=== PATIENT | female | born 1935 | race Caucasian/White ===

== ENCOUNTER 2017-09-13 16:47 | Inpatient (IN) | payer OTHER ==
[2017-09-13 16:59] VITALS: BMI 26.5
--- NOTE | 2017-09-13 17:00 | PDOC ---
Rapid Medical Evaluation Chief Complaint: Shortness of Breath Time Seen by Provider: 09/13/17 16:55 Medical Evaluation: Allergies Allergy/AdvReac Type Severity Reaction Status Date / Time No Known Allergies Allergy Verified 09/13/17 16:53 09/13/17 16:55 The patient presents with a chief complaint of: [Shortness of breathe, son reports blood in the urine. Cough, Fever, weakness and vomiting since Wednesday. Body aches. Unable to keep any fluids or solids in. ] I have performed a brief in-person evaluation of this patient. Pertinent physical exam findings: 99.9 HR 124., tachycardia, lungs clear I have ordered the following: [Influenza, CBC, CMP, Blood cultures, lactic acid, urinalysis, urine culture, chest xray] The patient will proceed to the ED for further evaluation. Discharge Disposition - Diagnosis Shortness of breath - Referrals Referrals: Thomas Prescott MD [Primary Care Provider] - - Patient Instructions - Post Discharge Activity
--- NOTE | 2017-09-13 17:36 | PDOC ---
History of Present Illness - General Chief Complaint: SIRS, Suspected/Possible Stated Complaint: COLD SYMPTOMS Time Seen by Provider: 09/13/17 16:55 History Source: Patient - History of Present Illness Initial Comments: 09/13/17 17:32 This 81-year-old woman with past medical history of hypertension, hyperlipidemia , hypothyroidism who presents to the emergency department for chills, headache, body aches, nausea, vomiting, hematuria for the past 4-5 days. She states she was seen by a primary medical doctor who gave her an antibiotic which has not helped. She states she's having difficulty tolerating solid foods. She reports being able to tolerate liquids without difficulty. Patient denies chest pain, diarrhea. PMD: Ribiero PMH: Hypertension, hyperlipidemia, hypothyroidism next PSH: Denies NKDA Tobacco: Denies EtOH: Denies Illicits: Denies Patient has not traveled outside the [place] within the past 30 days. Patient makes frequent trips to [facility] with her last trip being February 2017. Past History - Past Medical History Allergies/Adverse Reactions: Allergies Allergy/AdvReac Type Severity Reaction Status Date / Time No Known Allergies Allergy Verified 09/13/17 16:53 Home Medications: Ambulatory Orders Atorvastatin Ca [Lipitor] 10 mg PO HS 09/13/17 Hydrocodone/Acetaminophen [Hydrocodone-Acetamin 5-325 mg] 1 each PO QID PRN Levothyroxine Sodium [Levoxyl] 50 mcg PO DAILY 09/13/17 Lisinopril [Prinivil] 20 mg PO BID 09/13/17 COPD: No Hypercholesterolemia: Yes Thyroid Disease: Yes - Suicide/Smoking/Psychosocial Hx Smoking History: Never smoked Have you smoked in the past 12 months: No Information on smoking cessation initiated: No Hx Alcohol Use: No Drug/Substance Use Hx: No Substance Use Type: None Review of Systems - Review of Systems Able to Perform ROS?: Yes Is the patient limited Danish proficient: Yes Constitutional: Yes: See HPI HEENTM: Yes: See HPI Respiratory: Yes: See HPI Cardiac (ROS): No: Symptoms Reported ABD/GI: Yes: See HPI : Yes: See HPI Musculoskeletal: Yes: See HPI Integumentary: No: Symptoms Reported Neurological: No: Symptoms reported Endocrine: No: Symptoms Reported *Physical Exam - Vital Signs Last Vital Signs Temp Pulse Resp BP Pulse Ox 99.9 F H 121 H 20 123/80 100 09/13/17 16:54 09/13/17 16:54 09/13/17 16:54 09/13/17 16:54 09/13/17 16:54 - Physical Exam General Appearance: Yes: Appropriately Dressed. No: Apparent Distress HEENT: positive: Normal ENT Inspection Neck: positive: Trachea midline, Supple Respiratory/Chest: positive: Lungs Clear, Normal Breath Sounds. negative: Chest Tender, Respiratory Distress, Accessory Muscle Use Cardiovascular: positive: Regular Rhythm, Regular Rate, S1, S2. negative: Edema , JVD, Murmur Gastrointestinal/Abdominal: positive: Normal Bowel Sounds, Soft. 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 NML intact, Fully Oriented, Alert, Normal Mood/ Affect, Normal Response, Motor Strength 5/5 Heart Score/ECG Review - History History: Slightly suspicious - Electrocardiogram EKG: Normal - Age Age: >/= 65 - Risk Factors Risk Factors Heart Score: Yes Hx Hypercholesterolemia, Yes Hx Hypertension Based on the list above the patient has:: 1-2 risk factors - Troponin Troponin: </= normal limit - Score Heart Score - Total: 3 - ECG Intrepretation Rhythm: Regular Rhythm - ST and T Non Specific ST-T Wave changes: No ED Treatment Course - LABORATORY CBC & Chemistry Diagram: 09/15/17 06:35 09/15/17 06:35 - RADIOLOGY Radiology Studies Ordered: Category Date Time Status CXRPORT [CHEST X-RAY PORTABLE*] [RAD] Stat Radiology 09/13/17 17:16 Ordered Medical Decision Making - Medical Decision Making 09/13/17 17:36 A/P: 81-year-old woman past medical history of hypertension, hyperlipidemia, hypothyroidism with chills, headaches, body aches, hematuria, nausea and vomiting. Vital signs notable for heart rate of 121 and temperature of 99.9. Labs with lactate, blood cultures, UA, urine culture, influenza swab, chest x- ray. Tylenol 975mg orally now. Reassess after all testing is been completed 09/13/17 19:23 Laboratory testing consistent with pyelonephritis. A care with creatinine 1.3 up from a baseline of 1.0. Patient given 500 mL of fluid. I'll treat the patient with one dose of IV Levaquin here and give her by mouth medication to treat as an outpatient. I discussed the physical exam findings, ancillary test results and final diagnoses with the patient. I answered all of the patient's questions. The patient was satisfied with the care received and felt comfortable with the discharge plan and treatment plan. The patient will call Dr. Prescott within 96 hours to arrange follow-up and will return to the Emergency Department with any new, persistent or worsening symptoms. *DC/Admit/Observation/Transfer Diagnosis at time of Disposition: Pyelonephritis - Discharge Dispostion Condition at time of disposition: Stable - Referrals - Patient Instructions - Post Discharge Activity
[2017-09-13 17:58] LABS: INR 1.18 (0.82-1.09); PROTHROMBIN TIME (PATIENT) 13.3 SEC (9.98-11.88)
[2017-09-13 18:21] LABS: ALBUMIN 3.4 g/dl (3.4-5.0); ANION GAP 10 (8-16); BLOOD UREA NITROGEN 26 mg/dL (7-18); CALCIUM 8.4 mg/dL (8.5-10.1); CHLORIDE 101 mmol/L (98-107); CO2 23 mmol/L (21-32); CREATININE 1.3 mg/dL (0.55-1.02); GLUCOSE,RANDOM 127 mg/dL (74-106); SGPT/ALT 22 U/L (12-78); SODIUM 134 mmol/L (136-145)
[2017-09-13 18:25] LABS: ALK PHOS 136 U/L (45-117); BILIRUBIN,TOTAL 1.1 mg/dL (0.2-1.0); TOT PROT 7.2 g/dl (6.4-8.2)
[2017-09-13 18:30] LABS: POTASSIUM 4.2 mmol/L (3.5-5.1); SGOT/AST 30 U/L (15-37)
[2017-09-13] MEDS ORDERED: SODIUM CHLORIDE 500 ML IV STA (18:31)
[2017-09-13] MEDS ORDERED: ACETAMINOPHEN 1000 MG/100 ML VIAL (NON FORMULARY) IVPB ONE (18:35)
[2017-09-13 18:47] LABS: BASO % 0.3 % (0-2.0); HEMATOCRIT 37.5 % (32.4-45.2); HEMOGLOBIN 12.4 GM/dL (10.7-15.3); LYMPH % 3.3 % (8-40); MCH 28.9 pg (25.7-33.7); MCHC 32.9 g/dl (32.0-36.0); MEAN CELL VOLUME 87.8 fl (80-96); MEAN PLT VOLUME 9.6 fl (7.5-11.1); MONO % 8.5 % (3.8-10.2); NEUT % 87.9 % (42.8-82.8); PLATELET COUNT 197 K/MM3 (134-434); RBC 4.27 M/mm3 (3.60-5.2); RDW 13.7 % (11.6-15.6); URINE APPEARANCE TURBID; URINE BILIRUBIN NEGATIVE (NEGATIVE); URINE BLOOD 2+ (NEGATIVE); URINE COLOR AMBER; URINE GLUCOSE (UA) NEGATIVE (NEGATIVE); URINE KETONE TRACE (NEGATIVE); URINE NITRITE POSITIVE (NEGATIVE); URINE UROBILINOGEN NEGATIVE mg/dL (0.2-1.0); WHITE BLOOD COUNT 16.2 K/mm3 (4.0-10.0)
[2017-09-13 18:48] LABS: URINE LEUK ESTERASE 3+ (NEGATIVE); URINE PROTEIN 2+ (NEGATIVE)
[2017-09-13 18:58] LABS: EPI CELLS FEW /HPF (FEW); URINE BACTERIA RARE /hpf (NONE SEEN); URINE MUCUS FEW
[2017-09-13] MEDS ORDERED: METOCLOPRAMIDE HCL INJECTION 10 MG/2 ML VIAL IVPB ONE (20:11)
[2017-09-13] MEDS ORDERED: METOCLOPRAMIDE HCL INJECTION 10 MG/2 ML VIAL ONE (20:13)
[2017-09-13] MEDS ORDERED: ACETAMINOPHEN 325 MG TABLET (FP) PO ONE (20:53)
--- NOTE | 2017-09-13 20:53 | PDOC ---
*Physical Exam - Vital Signs Last Vital Signs Temp Pulse Resp BP Pulse Ox 100.4 F H 80 18 117/71 97 09/13/17 18:50 09/13/17 19:22 09/13/17 19:22 09/13/17 19:22 09/13/17 19:22 - Physical Exam General Appearance: Yes: Mild Distress Gastrointestinal/Abdominal: positive: Normal Bowel Sounds, Tender, Soft Musculoskeletal: positive: CVA Tenderness Neurologic: positive: Fully Oriented, Alert ED Treatment Course - LABORATORY CBC & Chemistry Diagram: 09/15/17 06:35 09/16/17 07:20 - ADDITIONAL ORDERS Additional order review: Laboratory Results 09/13/17 09/13/17 09/13/17 18:30 18:20 18:20 PT with INR INR PTT (Actin FS) Sodium Potassium Chloride Carbon Dioxide Anion Gap BUN Creatinine Creat Clearance w eGFR Random Glucose Lactic Acid 1.7 Calcium Total Bilirubin AST ALT Alkaline Phosphatase Creatine Kinase Creatine Kinase Index CK-MB (CK-2) Troponin I Total Protein Albumin Urine Color Margarette Urine Appearance Turbid Urine pH 5.0 Ur Specific [place] 1.018 Urine Protein 2+ H Urine Glucose (UA) Negative Urine Ketones Trace H Urine Blood 2+ H Urine Nitrite Positive Urine Bilirubin Negative Urine Urobilinogen Negative Ur Leukocyte Esterase 3+ H D Urine WBC (Auto) 1765 Urine RBC (Auto) 23 Ur Epithelial Cells Few Urine Bacteria Rare Urine Mucus Few Blood Type O NEGATIVE Antibody Screen Negative 09/13/17 09/13/17 09/13/17 17:15 17:15 17:15 PT with INR INR PTT (Actin FS) Sodium 134 L Potassium 4.2 Chloride 101 Carbon Dioxide 23 Anion Gap 10 BUN 26 H Creatinine 1.3 H Creat Clearance w eGFR 39.51 Random Glucose 127 H Lactic Acid 1.5 Calcium 8.4 L Total Bilirubin 1.1 H D AST 30 ALT 22 Alkaline Phosphatase 136 H Creatine Kinase 190 Creatine Kinase Index 0.5 CK-MB (CK-2) < 1.000 Troponin I < 0.02 Total Protein 7.2 Albumin 3.4 Urine Color Urine Appearance Urine pH Ur Specific [place] Urine Protein Urine Glucose (UA) Urine Ketones Urine Blood Urine Nitrite Urine Bilirubin Urine Urobilinogen Ur Leukocyte Esterase Urine WBC (Auto) Urine RBC (Auto) Ur Epithelial Cells Urine Bacteria Urine Mucus Blood Type Cancelled Antibody Screen Cancelled 09/13/17 17:15 PT with INR 13.30 H INR 1.18 H PTT (Actin FS) 21.0 L Sodium Potassium Chloride Carbon Dioxide Anion Gap BUN Creatinine Creat Clearance w eGFR Random Glucose Lactic Acid Calcium Total Bilirubin AST ALT Alkaline Phosphatase Creatine Kinase Creatine Kinase Index CK-MB (CK-2) Troponin I Total Protein Albumin Urine Color Urine Appearance Urine pH Ur Specific [place] Urine Protein Urine Glucose (UA) Urine Ketones Urine Blood Urine Nitrite Urine Bilirubin Urine Urobilinogen Ur Leukocyte Esterase Urine WBC (Auto) Urine RBC (Auto) Ur Epithelial Cells Urine Bacteria Urine Mucus Blood Type Antibody Screen 09/13/17 18:20 Influenza Types A,B Antigen (JAJA) - Final Nasopharyngeal Swab - Final 09/13/17 09/13/17 18:20 17:15 RBC 4.27 Cancelled MCV 87.8 Cancelled MCHC 32.9 Cancelled RDW 13.7 Cancelled MPV 9.6 Cancelled Neutrophils % 87.9 H D Cancelled Lymphocytes % 3.3 L D Cancelled Monocytes % 8.5 Cancelled Eosinophils % 0.0 D Cancelled Basophils % 0.3 Cancelled - RADIOLOGY Radiology Studies Ordered: Category Date Time Status KIDNEY / RENAL US [US] Stat Ultrasound 09/13/17 20:52 Ordered PELVIC / BLADDER US [US] Stat Ultrasound 09/13/17 20:52 Ordered - Medications Given in the ED: ED Medications Discontinued Medications Generic Name Dose Route Start Last Admin Trade Name Sawyerq PRN Reason Stop Dose Admin Acetaminophen 1,000 mg 09/13/17 18:35 09/13/17 18:50 Ofirmev Injection - IVPB 09/13/17 18:36 1,000 mg ONCE ONE Administration Sodium Chloride 500 mls @ 500 mls/hr 09/13/17 18:31 09/13/17 18:50 Normal Saline - IV 09/13/17 19:30 500 mls/hr ASDIR STA Administration Levofloxacin 750 mg in 150 mls @ 100 mls/hr 09/13/17 19:15 09/13/17 19:21 Levaquin 750 Mg Premixed Ivpb - IVPB 09/13/17 20:44 100 mls/hr ONCE ONE Administration Metoclopramide HCl 10 mg 09/13/17 20:11 09/13/17 20:31 Reglan Injection - IVPB 09/13/17 20:12 10 mg ONCE ONE Administration Medical Decision Making - Medical Decision Making 09/13/17 20:56 Patient signed out to Dr. rao for further management of care. patient to be admitted for management of pyelonephritis. *DC/Admit/Observation/Transfer Diagnosis at time of Disposition: Pyelonephritis - Discharge Dispostion [facility] Condition at time of disposition: Good Admit: Yes - Prescriptions - Referrals - Patient Instructions - Post Discharge Activity
[2017-09-14] MEDS: ACETAMINOPHEN 650 MG/20.3 ML ORAL SOLUTION (CUPS) PO PRN ×2 (01:53→15:31)
[2017-09-14] MEDS: LEVOTHYROXINE NA 50 MCG TABLET (FP) PO SCH (06:11)
[2017-09-14 08:19] LABS: HEMATOCRIT 34.7 % (32.4-45.2); HEMOGLOBIN 11.3 GM/dL (10.7-15.3); MCH 28.4 pg (25.7-33.7); MCHC 32.6 g/dl (32.0-36.0); MEAN CELL VOLUME 87.2 fl (80-96); MEAN PLT VOLUME 8.8 fl (7.5-11.1); PLATELET COUNT 178 K/MM3 (134-434); RBC 3.98 M/mm3 (3.60-5.2); RDW 13.6 % (11.6-15.6); WHITE BLOOD COUNT 12.6 K/mm3 (4.0-10.0)
[2017-09-14 08:27] LABS: CHLORIDE 104 mmol/L (98-107); POTASSIUM 3.7 mmol/L (3.5-5.1); SODIUM 137 mmol/L (136-145)
[2017-09-14 08:46] LABS: ALBUMIN 2.6 g/dl (3.4-5.0); ALK PHOS 110 U/L (45-117); ANION GAP 9 (8-16); BILIRUBIN,TOTAL 0.9 mg/dL (0.2-1.0); BLOOD UREA NITROGEN 24 mg/dL (7-18); CALCIUM 8.4 mg/dL (8.5-10.1); CO2 24 mmol/L (21-32); CREATININE 1.1 mg/dL (0.55-1.02); GLUCOSE,RANDOM 95 mg/dL (74-106); SGOT/AST 23 U/L (15-37); SGPT/ALT 19 U/L (12-78); TOT PROT 5.9 g/dl (6.4-8.2)
[2017-09-14] MEDS: LISINOPRIL 5 MG TABLET (FP) PO SCH (09:40)
--- NOTE | 2017-09-14 10:32 | HP ---
Admitting History and Physical - Primary Care Physician PCP: Thomas Prescott (Dr Villarrealci coveringblas) - Admission Chief Complaint: pain abd & weakness History of Present Illness: This 81-year-old woman (Patient of Dr Thomas Prescott)with Hx of hypertension, hyperlipidemia, hypothyroidism who presents to the emergency department for chills, headache, body aches, nausea, vomiting, Lt sided flank pain & hematuria for the past 4-5 days. She states she was seen by a primary medical doctor who gave her an antibiotic which has not helped. She states she's having difficulty tolerating solid foods. She reports being able to tolerate liquids without difficulty. Patient denies chest pain, diarrhea, sweats, and now has less abd pain but but feels weak. History Source: Patient, Medical Record Limitations to Obtaining History: Language Barrier - Past Medical History Cardiovascular: Yes: HTN, Hyperlipdemia Renal/: Yes: UTI ...: No Endocrine: Yes: Hypothyroidism - Smoking History Smoking history: Never smoked Have you smoked in the past 12 months: No - Alcohol/Substance Use Hx Alcohol Use: No - Social History Usual Living Arrangement: Yes: Other ADL: Family Assistance Occupation: retired History of Recent Travel: No Home Medications - Allergies Allergies/Adverse Reactions: Allergies Allergy/AdvReac Type Severity Reaction Status Date / Time No Known Allergies Allergy Verified 09/13/17 16:53 - Home Medications Home Medications: Ambulatory Orders Atorvastatin Ca [Lipitor] 10 mg PO HS 09/13/17 Hydrocodone/Acetaminophen [Hydrocodone-Acetamin 5-325 mg] 1 each PO QID PRN Levothyroxine Sodium [Levoxyl] 50 mcg PO DAILY 09/13/17 Lisinopril [Prinivil] 20 mg PO BID 09/13/17 Family Disease History - Family Disease History Family History: Unremarkable Review of Systems - Review of Systems Constitutional: reports: Chills, Malaise, Weakness Eyes: reports: No Symptoms HENT: reports: No Symptoms Neck: reports: No Symptoms Cardiovascular: reports: No Symptoms Respiratory: reports: Cough Gastrointestinal: reports: Abdominal Pain Genitourinary: reports: Flank Pain Musculoskeletal: reports: Muscle Weakness Integumentary: reports: No Symptoms Neurological: reports: Weakness Endocrine: reports: No Symptoms Hematology/Lymphatic: reports: No Symptoms Psychiatric: reports: No Symptoms Physical Examination Vital Signs: Vital Signs Temperature 99.0 F 09/14/17 05:55 Pulse Rate 86 09/14/17 05:55 Respiratory Rate 20 09/14/17 05:55 Blood Pressure 129/84 09/14/17 05:55 O2 Sat by Pulse Oximetry (%) 97 09/13/17 23:53 Constitutional: Yes: Well Nourished, No Distress, Calm Eyes: Yes: Conjunctiva Clear HENT: Yes: WNL Neck: Yes: Trachea Midline, Decreased ROM Cardiovascular: Yes: Regular Rate and Rhythm Respiratory: Yes: Regular Gastrointestinal: Yes: Normal Bowel Sounds, Soft, Tenderness (LLQ, no rebound) ...Rectal Exam: Yes: Deferred Renal/: Yes: CVA Tenderness - Left Extremities: Yes: WNL Edema: No Peripheral Pulses WNL: No Peripheral Pulses: Left Doralis Pedis: 1+, Right Dorsalis Pedis: 1+ Integumentary: Yes: WNL Neurological: Yes: WNL, Alert, Oriented ...Motor Strength: WNL Psychiatric: Yes: WNL Labs: CBC, BMP 09/14/17 06:00 09/14/17 06:00 Laboratory Results - last 24 hr 09/13/17 09/13/17 09/13/17 17:15 17:15 17:15 WBC Cancelled Corrected WBC (auto) Cancelled RBC Cancelled Hgb Cancelled Hct Cancelled MCV Cancelled MCH Cancelled MCHC Cancelled RDW Cancelled Plt Count Cancelled MPV Cancelled Absolute Neuts (auto) Cancelled Absolute Lymphs (auto) Cancelled Absolute Monos (auto) Cancelled Absolute Eos (auto) Cancelled Absolute Basos (auto) Cancelled Add Manual Diff Cancelled Neutrophils % Cancelled Lymphocytes % Cancelled Monocytes % Cancelled Eosinophils % Cancelled Basophils % Cancelled Nucleated RBC % Cancelled Platelet Estimate Cancelled Platelet Comment Cancelled Normal RBC Morphology Cancelled PT with INR 13.30 H INR 1.18 H PTT (Actin FS) 21.0 L Sodium 134 L Potassium 4.2 Chloride 101 Carbon Dioxide 23 Anion Gap 10 BUN 26 H Creatinine 1.3 H Creat Clearance w eGFR 39.51 Random Glucose 127 H Hemoglobin A1c % Lactic Acid Calcium 8.4 L Total Bilirubin 1.1 H D AST 30 ALT 22 Alkaline Phosphatase 136 H Creatine Kinase 190 Creatine Kinase Index 0.5 CK-MB (CK-2) < 1.000 Troponin I < 0.02 Total Protein 7.2 Albumin 3.4 TSH Urine Color Urine Appearance Urine pH Ur Specific [place] Urine Protein Urine Glucose (UA) Urine Ketones Urine Blood Urine Nitrite Urine Bilirubin Urine Urobilinogen Ur Leukocyte Esterase Urine WBC (Auto) Urine RBC (Auto) Ur Epithelial Cells Urine Bacteria Urine Mucus Blood Type Antibody Screen 09/13/17 09/13/17 09/13/17 17:15 17:15 18:20 WBC Corrected WBC (auto) RBC Hgb Hct MCV MCH MCHC RDW Plt Count MPV Absolute Neuts (auto) Absolute Lymphs (auto) Absolute Monos (auto) Absolute Eos (auto) Absolute Basos (auto) Add Manual Diff Neutrophils % Lymphocytes % Monocytes % Eosinophils % Basophils % Nucleated RBC % Platelet Estimate Platelet Comment Normal RBC Morphology PT with INR INR PTT (Actin FS) Sodium Potassium Chloride Carbon Dioxide Anion Gap BUN Creatinine Creat Clearance w eGFR Random Glucose Hemoglobin A1c % Lactic Acid 1.5 Calcium Total Bilirubin AST ALT Alkaline Phosphatase Creatine Kinase Creatine Kinase Index CK-MB (CK-2) Troponin I Total Protein Albumin TSH Urine Color Margarette Urine Appearance Turbid Urine pH 5.0 Ur Specific [place] 1.018 Urine Protein 2+ H Urine Glucose (UA) Negative Urine Ketones Trace H Urine Blood 2+ H Urine Nitrite Positive Urine Bilirubin Negative Urine Urobilinogen Negative Ur Leukocyte Esterase 3+ H D Urine WBC (Auto) 1765 Urine RBC (Auto) 23 Ur Epithelial Cells Few Urine Bacteria Rare Urine Mucus Few Blood Type Cancelled Antibody Screen Cancelled 09/13/17 09/13/17 09/13/17 18:20 18:20 18:30 WBC 16.2 H D Corrected WBC (auto) RBC 4.27 Hgb 12.4 D Hct 37.5 MCV 87.8 MCH 28.9 D MCHC 32.9 RDW 13.7 Plt Count 197 MPV 9.6 Absolute Neuts (auto) Absolute Lymphs (auto) Absolute Monos (auto) Absolute Eos (auto) Absolute Basos (auto) Add Manual Diff Neutrophils % 87.9 H D Lymphocytes % 3.3 L D Monocytes % 8.5 Eosinophils % 0.0 D Basophils % 0.3 Nucleated RBC % Platelet Estimate Platelet Comment Normal RBC Morphology PT with INR INR PTT (Actin FS) Sodium Potassium Chloride Carbon Dioxide Anion Gap BUN Creatinine Creat Clearance w eGFR Random Glucose Hemoglobin A1c % Lactic Acid 1.7 Calcium Total Bilirubin AST ALT Alkaline Phosphatase Creatine Kinase Creatine Kinase Index CK-MB (CK-2) Troponin I Total Protein Albumin TSH Urine Color Urine Appearance Urine pH Ur Specific [place] Urine Protein Urine Glucose (UA) Urine Ketones Urine Blood Urine Nitrite Urine Bilirubin Urine Urobilinogen Ur Leukocyte Esterase Urine WBC (Auto) Urine RBC (Auto) Ur Epithelial Cells Urine Bacteria Urine Mucus Blood Type O NEGATIVE Antibody Screen Negative 09/14/17 09/14/17 09/14/17 06:00 06:00 06:00 WBC 12.6 H Corrected WBC (auto) RBC 3.98 Hgb 11.3 Hct 34.7 MCV 87.2 MCH 28.4 MCHC 32.6 RDW 13.6 Plt Count 178 MPV 8.8 Absolute Neuts (auto) Absolute Lymphs (auto) Absolute Monos (auto) Absolute Eos (auto) Absolute Basos (auto) Add Manual Diff Neutrophils % Lymphocytes % Monocytes % Eosinophils % Basophils % Nucleated RBC % Platelet Estimate Platelet Comment Normal RBC Morphology PT with INR INR PTT (Actin FS) Sodium 137 Potassium 3.7 Chloride 104 Carbon Dioxide 24 Anion Gap 9 BUN 24 H Creatinine 1.1 H Creat Clearance w eGFR 47.91 Random Glucose 95 Hemoglobin A1c % 5.1 Lactic Acid Calcium 8.4 L Total Bilirubin 0.9 AST 23 ALT 19 Alkaline Phosphatase 110 Creatine Kinase Creatine Kinase Index CK-MB (CK-2) Troponin I Total Protein 5.9 L Albumin 2.6 L TSH 1.56 Urine Color Urine Appearance Urine pH Ur Specific [place] Urine Protein Urine Glucose (UA) Urine Ketones Urine Blood Urine Nitrite Urine Bilirubin Urine Urobilinogen Ur Leukocyte Esterase Urine WBC (Auto) Urine RBC (Auto) Ur Epithelial Cells Urine Bacteria Urine Mucus Blood Type Antibody Screen Urine Test Results Urine Color [place] 09/13/17 18:20 Urine Appearance Turbid 09/13/17 18:20 Urine pH 5.0 (5.0-8.0) 09/13/17 18:20 Ur Specific [place] 1.018 (1.001-1.035) 09/13/17 18:20 Urine Protein 2+ (NEGATIVE) H 09/13/17 18:20 Urine Glucose (UA) Negative (NEGATIVE) 09/13/17 18:20 Urine Ketones Trace (NEGATIVE) H 09/13/17 18:20 Urine Blood 2+ (NEGATIVE) H 09/13/17 18:20 Urine Nitrite Positive (NEGATIVE) 09/13/17 18:20 Urine Bilirubin Negative (NEGATIVE) 09/13/17 18:20 Ur Leukocyte Esterase 3+ (NEGATIVE) H D 09/13/17 18:20 Ur Epithelial Cells Few /HPF (FEW) 09/13/17 18:20 Urine Bacteria Rare /hpf (NONE SEEN) 09/13/17 18:20 Urine Mucus Few 09/13/17 18:20 Imaging - Results Chest X-ray: Report Reviewed Ultrasound: Report Reviewed Problem List - Problems (1) Pyelonephritis Assessment/Plan: as evidenced by c/o Lt flank pain; fever, high WBC & systemic Sx to suggest even possible sepsis; Renal US does not suggest evidence of renal lithiasis: PLAN: IV Abs; await cultures Code(s): N12 - TUBULO-INTERSTITIAL NEPHRITIS, NOT SPCF ACUTE OR CHRONIC (2) Hypertension Assessment/Plan: being Tx with ALEX-I; will cont at lower dose Code(s): I10 - ESSENTIAL (PRIMARY) HYPERTENSION Qualifiers: Hypertension type: unspecified Qualified Code(s): I10 - Essential (primary ) hypertension (3) Hypothyroid Assessment/Plan: euthyroid; resume Levothyroxine; check TSH Code(s): E03.9 - HYPOTHYROIDISM, UNSPECIFIED Qualifiers: Hypothyroidism type: unspecified Qualified Code(s): E03.9 - Hypothyroidism , unspecified (4) Lipidemia Assessment/Plan: has been Tx with statin; will resume Code(s): E78.5 - HYPERLIPIDEMIA, UNSPECIFIED Qualifiers: Hyperlipidemia type: unspecified Qualified Code(s): E78.5 - Hyperlipidemia , unspecified Assessment/Plan c 81 y/o systemically ill (as described) female; with evidence of infection of the Urinary tract; who has failed 0n oral antibiotics ```````````````````````````````` END Dr Presley
--- NOTE | 2017-09-14 14:01 | EKG ---
Test Reason : Blood Pressure : / mmHG Vent. Rate : 091 BPM Atrial Rate : 091 BPM P-R Int : 140 ms QRS Dur : 088 ms QT Int : 358 ms P-R-T Axes : 021 -11 038 degrees QTc Int : 440 ms NORMAL SINUS RHYTHM WITH SINUS ARRHYTHMIA NORMAL ECG Confirmed by MD CIARRA, TIERA ([id number]) on 09/14/2017 2:00:56 PM Referred By: Confirmed By:TIERA LAFLEUR MD
[2017-09-15] MEDS: ACETAMINOPHEN 650 MG/20.3 ML ORAL SOLUTION (CUPS) PO PRN ×2 (00:51→21:29)
[2017-09-15] MEDS: LEVOTHYROXINE NA 50 MCG TABLET (FP) PO SCH (06:05)
[2017-09-15 07:56] LABS: HEMATOCRIT 33.6 % (32.4-45.2); HEMOGLOBIN 11.1 GM/dL (10.7-15.3); MCH 28.6 pg (25.7-33.7); MCHC 33.2 g/dl (32.0-36.0); MEAN CELL VOLUME 86.1 fl (80-96); MEAN PLT VOLUME 8.9 fl (7.5-11.1); PLATELET COUNT 198 K/MM3 (134-434); RDW 13.8 % (11.6-15.6); WHITE BLOOD COUNT 8.9 K/mm3 (4.0-10.0)
[2017-09-15] MEDS: LISINOPRIL 5 MG TABLET (FP) PO SCH (09:25)
[2017-09-15 09:36] LABS: CHLORIDE 105 mmol/L (98-107); POTASSIUM 3.7 mmol/L (3.5-5.1); SODIUM 140 mmol/L (136-145)
[2017-09-15 10:14] LABS: ANION GAP 10 (8-16); BLOOD UREA NITROGEN 23 mg/dL (7-18); CALCIUM 8.9 mg/dL (8.5-10.1); CO2 25 mmol/L (21-32); CREATININE 1.1 mg/dL (0.55-1.02); GLUCOSE,RANDOM 82 mg/dL (74-106)
--- NOTE | 2017-09-15 15:02 | PN ---
Progress Note (short form) - Note Progress Note: ########################### cover for Dr Prescott Current Medications Acetaminophen (Tylenol Oral Solution -) 650 mg PO Q6H PRN PRN Reason: FEVER Last Admin: 09/15/17 00:51 Dose: 650 mg Atorvastatin Calcium (Lipitor -) 10 mg PO [facility] Levofloxacin (Levaquin 250 Mg Premixed Ivpb -) 250 mg in 50 mls @ 50 mls/hr IVPB DAILY [facility] Last Admin: 09/15/17 09:26 Dose: 50 mls/hr Levothyroxine Sodium (Synthroid -) 50 mcg PO DAILY@0700 [facility] Last Admin: 09/15/17 06:05 Dose: 50 mcg Lisinopril (Prinivil) 5 mg PO DAILY [facility] Last Admin: 09/15/17 09:25 Dose: 5 mg Laboratory Results - last 24 hr 09/15/17 09/15/17 06:35 06:35 WBC 8.9 RBC 3.90 Hgb 11.1 Hct 33.6 MCV 86.1 MCH 28.6 MCHC 33.2 RDW 13.8 Plt Count 198 MPV 8.9 Sodium 140 Potassium 3.7 Chloride 105 Carbon Dioxide 25 Anion Gap 10 BUN 23 H Creatinine 1.1 H Random Glucose 82 Calcium 8.9 Vital Signs Temperature 98.4 F 09/15/17 14:00 Pulse Rate 83 09/15/17 14:00 Respiratory Rate 18 09/15/17 14:00 Blood Pressure 139/69 09/15/17 14:00 O2 Sat by Pulse Oximetry (%) 97 09/14/17 21:00 CC: feels less abd discomfort; but no appetite `````````````````````````````` skin--no rashes; NL color heart--RR lungs--grossly clear abd--BS+; NT neuro--awake; verbal; appears coherent; moves all E's on command; good eye contact ```````````````````````````` summ > Pyuria--likley to be Pyelonphritis (given array of symptoms & findings), which seems to have improved clinically since seen in the ED. Still has periodic fever spikes. Uc&s now shows LF gram neg orgs, but full sensitives & ID pending. WBC has normalized PLAN: cont Levaquin for now > HTn--BP is under control with lower dose agents > hypothyroid--euthyroid; TSH okay ~~~~~~~~~~~~~~~~~ Dr Presley (cover for Dr Prescott) Problem List - Problems (1) Pyelonephritis Code(s): N12 - TUBULO-INTERSTITIAL NEPHRITIS, NOT SPCF ACUTE OR CHRONIC (2) Hypertension Code(s): I10 - ESSENTIAL (PRIMARY) HYPERTENSION Qualifiers: Hypertension type: unspecified Qualified Code(s): I10 - Essential (primary ) hypertension (3) Hypothyroid Code(s): E03.9 - HYPOTHYROIDISM, UNSPECIFIED Qualifiers: Hypothyroidism type: unspecified Qualified Code(s): E03.9 - Hypothyroidism , unspecified (4) Lipidemia Code(s): E78.5 - HYPERLIPIDEMIA, UNSPECIFIED Qualifiers: Hyperlipidemia type: unspecified Qualified Code(s): E78.5 - Hyperlipidemia , unspecified
[2017-09-15] MEDS ORDERED: ATORVASTATIN CA 10 MG TABLET (FP) PO SCH (22:00)
[2017-09-16] MEDS: LEVOTHYROXINE NA 50 MCG TABLET (FP) PO SCH (06:24)
[2017-09-16 08:10] LABS: ANION GAP 10 (8-16); BLOOD UREA NITROGEN 25 mg/dL (7-18); CALCIUM 8.4 mg/dL (8.5-10.1); CHLORIDE 107 mmol/L (98-107); CO2 26 mmol/L (21-32); CREATININE 1.2 mg/dL (0.55-1.02); GLUCOSE,RANDOM 83 mg/dL (74-106); POTASSIUM 4.1 mmol/L (3.5-5.1); SODIUM 143 mmol/L (136-145)
[2017-09-16] MEDS: LISINOPRIL 5 MG TABLET (FP) PO SCH (10:00)
[2017-09-16 14:41] VITALS: BP 128/79; PULSE 69; TEMP 98.3
--- NOTE | 2017-09-16 14:53 | DS ---
Physical Examination Vital Signs: Vital Signs Temperature 98.3 F 09/16/17 14:00 Pulse Rate 69 09/16/17 14:00 Respiratory Rate 20 09/16/17 14:00 Blood Pressure 128/79 09/16/17 14:00 O2 Sat by Pulse Oximetry (%) 97 09/16/17 09:00 Constitutional: Yes: Well Nourished, No Distress, Calm Eyes: Yes: Conjunctiva Clear Cardiovascular: Yes: Regular Rate and Rhythm Respiratory: Yes: Regular Gastrointestinal: Yes: Normal Bowel Sounds, Soft Edema: No Neurological: Yes: WNL, Alert ...Motor Strength: WNL Psychiatric: Yes: WNL Labs: CBC, BMP 09/15/17 06:35 09/16/17 07:20 Discharge Summary Reason For Visit: FEVER,PYELONEPHRITIS Current Active Problems Fever (Acute) Hypertension (Acute) Hypothyroid (Acute) Lipidemia (Acute) Pyelonephritis (Acute) Low back pain Hospital Course: admitted for worsening fever, malaise, bloody urine. Was found to have high WBC and pyuria. Tx with IV Levaquin and responded well. The UA C&S revealed sensitive EColi (NON esbl) to Levaquin; she defervesced and the WBC normalized. She appeared alert, coherent in NAD at the time of D/c. renal US did not show any stones or hydronephrosis. Blood cultureShe will cont on PO Levaquin for 7 days. The BP was largely in good range; and the recommendation was to reduce the Lisinopril to QD and to check VNS to do BP checks. Condition: Good - Instructions Diet, Activity, Other Instructions: Take antibiotic for the next 7 days Visiting nurse will come to check BP. Take Blood pressure pill just once a day for now. See Dr Prescott on Call Dr Presley at [phone] if any questions. Low salt diet Referrals: Thomas Prescott MD [Primary Care Provider] - Disposition: VNS/HOME HEALTH CARE - Home Medications Comprehensive Discharge Medication List: Ambulatory Orders Atorvastatin Ca [Lipitor] 10 mg PO HS 09/13/17 Hydrocodone/Acetaminophen [Hydrocodone-Acetamin 5-325 mg] 1 each PO QID PRN Levothyroxine Sodium [Levoxyl] 50 mcg PO DAILY 09/13/17 Lisinopril [Prinivil] 20 mg PO once a day (new) Levaquin 250mg once a day for 7 days
== END 2017-09-16 18:36 | disposition home health service (06) | DRG 690 ==
LOC: JER 16:47 → JERBED 20:53 → J6S 23:08
PROVIDERS: ADMIT Internal Medicine Hematology & Oncology; ATTEND Internal Medicine Hematology & Oncology
DX: N12 Tubulo-interstitial nephritis, not specified as acute or chronic (principal); N39.0 Urinary tract infection, site not specified; I10 Essential (primary) hypertension; E78.5 Hyperlipidemia, unspecified; E03.9 Hypothyroidism, unspecified
CPT/HCPCS: 36415; 71045-TC-FY; 76775-TC; 76856-TC; 80048; 80053; 81003; 81015; 82550; 82553; 83036; 83605; 84443; 84484; 85025; 85027; 85610; 85730; 86850; 86900; 86901; 87040; 87086; 87186; 87804; 93005; 93010; 97116-GP; 97161-GP; 99285-25; J0131

== ENCOUNTER 2018-09-25 09:28 | Inpatient (IN) | payer OTHER ==
--- NOTE | 2018-09-25 10:02 | PDOC ---
History of Present Illness - General History Source: Patient Exam Limitations: No Limitations - History of Present Illness Initial Comments: 82 yo F with a hx of HTN, HLD, DM, and recent UTI presents to the emergency department with LLQ pain, fevers, and general body malaise <Juan Antonio Medina - Last Filed: 09/25/18 12:29> <Marie Hill - Last Filed: 09/25/18 16:06> - General Chief Complaint: Pain Stated Complaint: HEADACHE/BACK PAIN Time Seen by Provider: 09/25/18 09:57 Past History - Past Medical History COPD: No HTN: Yes Hypercholesterolemia: Yes Thyroid Disease: Yes - Suicide/Smoking/Psychosocial Hx Smoking History: Never smoked Have you smoked in the past 12 months: No Hx Alcohol Use: No Drug/Substance Use Hx: No Substance Use Type: None <Juan Antonio Medina - Last Filed: 09/25/18 12:29> <Marie Hill - Last Filed: 09/25/18 16:06> - Past Medical History Allergies/Adverse Reactions: Allergies Allergy/AdvReac Type Severity Reaction Status Date / Time No Known Allergies Allergy Verified 09/13/17 16:53 Home Medications: Ambulatory Orders Atorvastatin Ca [Lipitor] 10 mg PO HS 09/13/17 Levothyroxine Sodium [Levoxyl] 50 mcg PO DAILY 09/13/17 Hydrochlorothiazide [Hctz -] 12.5 mg PO DAILY 09/25/18 Lisinopril [Prinivil] 20 mg PO BID 09/25/18 Nitrofurantoin Macrocrystal [Macrodantin] 100 mg PO BID 09/25/18 *Physical Exam - Vital Signs Last Vital Signs Temp Pulse Resp BP Pulse Ox 97.7 F 107 H 24 H 101/49 L 94 L 09/25/18 09:40 09/25/18 09:40 09/25/18 09:40 09/25/18 09:40 09/25/18 09:40 <Juan Antonio Medina - Last Filed: 09/25/18 12:29> - Vital Signs Last Vital Signs Temp Pulse Resp BP Pulse Ox 99.6 F 77 16 132/86 98 09/25/18 15:41 09/25/18 15:41 09/25/18 15:41 09/25/18 15:41 09/25/18 15:41 <LizMarie Hillsasha - Last Filed: 09/25/18 16:06> Moderate Sedation - Procedure Monitoring Vital Signs: Procedure Monitoring Vital Signs Temperature 97.7 F 09/25/18 09:40 Pulse Rate 107 H 09/25/18 09:40 Respiratory Rate 24 H 09/25/18 09:40 Blood Pressure 101/49 L 09/25/18 09:40 O2 Sat by Pulse Oximetry (%) 94 L 09/25/18 09:40 <Juan Antonio Medina - Last Filed: 09/25/18 12:29> - Procedure Monitoring Vital Signs: Procedure Monitoring Vital Signs Temperature 99.6 F 09/25/18 15:41 Pulse Rate 77 09/25/18 15:41 Respiratory Rate 16 09/25/18 15:41 Blood Pressure 132/86 09/25/18 15:41 O2 Sat by Pulse Oximetry (%) 98 09/25/18 15:41 <Marie Hill Lizsasha - Last Filed: 09/25/18 16:06> ED Treatment Course - LABORATORY CBC & Chemistry Diagram: 09/25/18 10:08 09/25/18 10:08 <CarolJuan Antonio - Last Filed: 09/25/18 12:29> - LABORATORY CBC & Chemistry Diagram: 09/25/18 10:08 09/25/18 10:08 - ADDITIONAL ORDERS Additional order review: Laboratory Results 09/25/18 09/25/18 09/25/18 11:23 10:38 10:08 PT with INR INR PTT (Actin FS) VBG pH POC VBG pCO2 POC VBG pO2 Mixed VBG HCO3 Sodium 137 Potassium 3.9 Chloride 98 Carbon Dioxide 30 Anion Gap 9 BUN 25 H Creatinine 1.3 Creat Clearance w eGFR 39.41 POC Glucometer 106 Random Glucose 115 H Lactic Acid Calcium 9.5 Total Bilirubin 0.8 AST 31 ALT 22 Alkaline Phosphatase 112 Troponin I < 0.02 Total Protein 7.4 Albumin 3.9 Urine Color Yellow Urine Appearance Slcloudy Urine pH 6.0 Ur Specific [place] 1.018 Urine Protein Negative Urine Glucose (UA) Negative Urine Ketones Negative Urine Blood 1+ H Urine Nitrite Negative Urine Bilirubin Negative Urine Urobilinogen Negative Ur Leukocyte Esterase 1+ H D Urine WBC (Auto) 6 Urine RBC (Auto) 4 Ur Epithelial Cells Few Urine Bacteria Rare Hyaline Casts 1 Urine Mucus Rare 09/25/18 09/25/18 09/25/18 10:08 10:00 10:00 PT with INR 12.50 INR 1.06 PTT (Actin FS) 28.6 VBG pH 7.42 POC VBG pCO2 48.8 POC VBG pO2 19.3 L* Mixed VBG HCO3 31.2 H Sodium Potassium Chloride Carbon Dioxide Anion Gap BUN Creatinine Creat Clearance w eGFR POC Glucometer Random Glucose Lactic Acid 1.9 Calcium Total Bilirubin AST ALT Alkaline Phosphatase Troponin I Total Protein Albumin Urine Color Urine Appearance Urine pH Ur Specific [place] Urine Protein Urine Glucose (UA) Urine Ketones Urine Blood Urine Nitrite Urine Bilirubin Urine Urobilinogen Ur Leukocyte Esterase Urine WBC (Auto) Urine RBC (Auto) Ur Epithelial Cells Urine Bacteria Hyaline Casts Urine Mucus 09/25/18 09/25/18 10:38 10:08 RBC 4.53 MCV 88.9 MCHC 35.3 RDW 13.7 MPV 9.5 Neutrophils % 85.8 H Lymphocytes % 4.2 L D Monocytes % 7.3 Eosinophils % 2.6 D Basophils % 0.1 POC Glucometer 106 - Medications Given in the ED: ED Medications Discontinued Medications Generic Name Dose Route Start Last Admin Trade Name Freq PRN Reason Stop Dose Admin Acetaminophen 1,000 mg 09/25/18 10:05 09/25/18 11:25 Ofirmev Injection - IVPB 09/25/18 10:06 1,000 mg ONCE ONE Administration Sodium Chloride 1,000 mls @ 1,000 mls/hr 09/25/18 10:05 09/25/18 10:53 Normal Saline - IV 09/25/18 11:04 1,000 mls/hr ASDIR STA Administration Ceftriaxone Sodium 1,000 mg/ 50 mls @ 100 mls/hr 09/25/18 14:40 09/25/18 15: 29 Dextrose IVPB 09/25/18 15:09 100 mls/hr ONCE ONE Administration <Marie Hill - Last Filed: 09/25/18 16:06> Medical Decision Making - Medical Decision Making 09/25/18 12:29 oral contrast is given at 12:25 pm after patient expressed wishes for an alternative to IV contrast. <Juan Antonio Medina - Last Filed: 09/25/18 12:29> *DC/Admit/Observation/Transfer <Juan Antonio Medina - Last Filed: 09/25/18 12:29> - Discharge Dispostion Decision to Admit order: Yes Decision to Admit order Date/Time: 09/25/18 16:06 <Marie Hill - Last Filed: 09/25/18 16:06> Diagnosis at time of Disposition: Appendicitis Qualifiers: Appendicitis type: acute appendicitis Acute appendicitis type: unspecified acute appendicitis type Qualified Code(s): K35.80 - Unspecified acute appendicitis - Discharge Dispostion Condition at time of disposition: Guarded
[2018-09-25] MEDS ORDERED: SODIUM CHLORIDE 1,000 ML IV STA (10:05)
[2018-09-25] MEDS ORDERED: ACETAMINOPHEN 1000 MG/100 ML VIAL (NON FORMULARY) IVPB ONE (10:05)
--- NOTE | 2018-09-25 10:32 | PDOC ---
Attending Attestation - Resident Resident Name: Marcio Davison - ED Attending Attestation I have performed the following: I have examined & evaluated the patient, The case was reviewed & discussed with the resident, I agree w/resident's findings & plan - HPI HPI: 09/25/18 10:34 82 year old female with a significant past medical history of hypertension, diabetes, and recent UTI ( on macrobid) who presents to the emergency department with left lower quadrant abdominal pain for 2 days. The patient reports that her pain began yesterday and has been worsening from a similar previous pain. She reports some associated body malaise and fever. She reports some associated bilateral lower back pain but, denies any urinary symptoms. The patient also reports a headache of a burning sensation diffusely. She states that she has had recent sick contact with one of her sons at home. no AMS, focal weakness or paresthesias. no vomiting or diarrhea.She denies any other symptoms or complaints. Allergies: NKA Social history: Lives with family. No smoking. No alcohol. No illicit drugs. Surgical history: Cholecystectomy 09/25/18 11:12 - Physicial Exam PE: 09/25/18 10:34 NAD, well appearing, PERRL, EOMI, dry mucus membranes. nl conjunctiva, anicteric ; neck supple. lungs clear, but rapid shallow breathing. RRR, abdomen soft diffusely tender, more in left lower side.. no CVAT. MELENDEZ x4, no focal neuro deficits. No peripheral edema. normal color for ethnicity, [facility]. 09/25/18 11:13 - Medical Decision Making 09/25/18 10:35 See HPI for details Vital signs reviewed,+fever 100.7; normotensive, but soft. low sats 94%, borderline, on RA, mildly tachypneic. likely 2/2 pain. DDx abdominal pain: Renal colic, metabolic/electrolyte derangements. GERD, PUD , esophageal spasm, pancreatitis, hepatitis, constipation, colitis, gastroenteritis, UTI, pyelonephritis, ileus, SBO, medication side effect, hernia, appendicitis, diverticulitis, mesenteric ischemia. Prior notes reviewed, including admissions, discharges and consultations. laboratory results and imaging reviewed, basic labs and lytes wnl, notable for normal lactic acid. VBG normal, no acidosis. UA_positive with leuk esterase and WBCs. CXR_no acute pathology Cardiac panel_neg trop, less likely angina, ACS. EKG normal sinus rhythm, no interval abnormalities, narrow QRS, ST and T wave segments and morphology normal. Nonspecific T wave abnormalities ED course: infectious vs abdominal pathology vs metabolic workup initiated. IVF for dehydration. tylenol for pain and fever CT head to r/o stroke given "head burning." CT head neg for CVA or mass, chronic microvascular changes noted CT a/p: r/o diverticulitis vs pyelo given Left sided AP vs appy. CT with Acute appy noted, appendicolith noted, terminal ileum thickening also noted, likely secondary inflammatory changes; no perf, or abscess. post cholecystectomy, nondistended stomach, tiny diverticula in prox asc colon, no acute diverticulitis. no FF or air surg cs with Dr Roche for appy spoke with Dr Prescott, admit to hospitalist requested. Admitting to hospitalist service, med /surg, pt and family made aware of impression and plan. s/o to medicine team. 09/25/18 12:13 09/25/18 16:07 09/25/18 16:42 09/25/18 16:45 09/25/18 16:46
[2018-09-25 11:04] LABS: VENOUS PC02 48.8 mmHg (38-52); VENOUS PH 7.42 (7.32-7.42); VENOUS PO2 19.3 mmHg (28-48)
[2018-09-25] MEDS ORDERED: ACETAMINOPHEN INJECTION 100 ML IVPB ONE (11:15)
[2018-09-25 11:17] LABS: BASO % 0.1 % (0-2.0); EOS % 2.6 % (0-4.5); HEMATOCRIT 40.3 % (32.4-45.2); HEMOGLOBIN 14.2 GM/dL (10.7-15.3); LYMPH % 4.2 % (8-40); MCH 31.4 pg (25.7-33.7); MCHC 35.3 g/dl (32.0-36.0); MEAN CELL VOLUME 88.9 fl (80-96); MEAN PLT VOLUME 9.5 fl (7.5-11.1); MONO % 7.3 % (3.8-10.2); NEUT % 85.8 % (42.8-82.8); PLATELET COUNT 174 K/MM3 (134-434); RBC 4.53 M/mm3 (3.60-5.2); RDW 13.7 % (11.6-15.6); WHITE BLOOD COUNT 9.9 K/mm3 (4.0-10.0)
[2018-09-25 11:36] LABS: INR 1.06 (0.83-1.09); PROTHROMBIN TIME (PATIENT) 12.5 SEC (9.7-13.0)
[2018-09-25 11:38] LABS: ACTIVATED PTT 28.6 SECONDS (25.2-36.5)
[2018-09-25 11:40] LABS: ALBUMIN 3.9 g/dl (3.4-5.0); ALK PHOS 112 U/L (45-117); ANION GAP 9 MMOL/L (8-16); BILIRUBIN,TOTAL 0.8 mg/dL (0.2-1); BLOOD UREA NITROGEN 25 mg/dL (7-18); CALCIUM 9.5 mg/dL (8.5-10.1); CHLORIDE 98 mmol/L (98-107); CO2 30 mmol/L (21-32); CREATININE 1.3 mg/dL (0.55-1.3); GLUCOSE,RANDOM 115 mg/dL (74-106); POTASSIUM 3.9 mmol/L (3.5-5.1); SGOT/AST 31 U/L (15-37); SGPT/ALT 22 U/L (13-61); SODIUM 137 mmol/L (136-145); TOT PROT 7.4 g/dl (6.4-8.2)
[2018-09-25 11:46] LABS: URINE APPEARANCE SLCLOUDY; URINE BILIRUBIN NEGATIVE (<2.0 mg/dL); URINE COLOR YELLOW; URINE GLUCOSE (UA) NEGATIVE (NEGATIVE); URINE KETONE NEGATIVE (NEGATIVE); URINE LEUK ESTERASE 1+ (NEGATIVE); URINE NITRITE NEGATIVE (NEGATIVE); URINE PROTEIN NEGATIVE (NEGATIVE); URINE UROBILINOGEN NEGATIVE mg/dL (0.2-1.0)
[2018-09-25 12:15] LABS: EPI CELLS FEW /HPF (FEW); URINE BACTERIA RARE /hpf (NONE SEEN); URINE HYALINE CAST 1 /lpf; URINE MUCUS RARE
--- NOTE | 2018-09-25 13:00 | EKG ---
Test Reason : Blood Pressure : / mmHG Vent. Rate : 097 BPM Atrial Rate : 097 BPM P-R Int : 150 ms QRS Dur : 096 ms QT Int : 366 ms P-R-T Axes : 025 -17 047 degrees QTc Int : 464 ms NORMAL SINUS RHYTHM NONSPECIFIC ST ABNORMALITY ABNORMAL ECG WHEN COMPARED WITH ECG OF 13-SEP-2017 18:35, CRITERIA FOR ANTERIOR INFARCT ARE NO LONGER PRESENT Confirmed by Duy Rivera MD ([id number]) on 09/25/2018 12:59:41 PM Referred By: Confirmed By:Duy Rivera MD
[2018-09-25] MEDS ORDERED: CEFTRIAXONE 1,000 MG in DEXTROSE 5%-WATER - 50 ML IVPB ONE (14:40)
[2018-09-25] MEDS ORDERED: CEFTRIAXONE 1 GM/50 ML BAG ONE (14:57)
[2018-09-25] MEDS ORDERED: SODIUM CHLORIDE 1,000 ML IV SCH (17:45)
--- NOTE | 2018-09-25 18:06 | PN ---
Teaching Attending Note Name of Resident: Vic Arango ATTENDING PHYSICIAN STATEMENT I saw and evaluated the patient. I reviewed the resident's note and discussed the case with the resident. I agree with the resident's findings and plan as documented. SUBJECTIVE: 82yo F with PMH HTN, DM and dyslipidemia currently being treated for UTI with macrobid presented to the ER with LLQ pain and lethargy x 2 days.has had diffuse abdominal pain for the past 7 years since her cholecystectomy but has worsened in the LLQ for the past 2 days. is currently being treated for UTI with macrobid. last saw PMD earlier this month. denies any changes to her medications. denies Cp, SOB, fever, chills, N/V/C/D. last BM yesterday OBJECTIVE: Last Vital Signs Temp Pulse Resp BP Pulse Ox 99.2 F 78 16 139/70 96 09/25/18 17:55 09/25/18 17:55 09/25/18 17:55 09/25/18 17:55 09/25/18 17:55 General NAD HEENT dry oral mucosa CV S1 S2 RRR no murmur/rub/gallop Lungs CTA B/L no wheezing/rales/rhonchi Abdomen soft LLQ tenderness to deep palpation. ND no rebound/guarding. negative obturator neg psoas sign neg mcburney point ASSESSMENT AND PLAN: 82yo F with PMH HTN, DM and dyslipidemia currently being treated for UTI with macrobid presented to the ER with LLQ pain and lethargy x 2 days. 1. Abdominal pain- vague diffuse abdominal pain. no clinical signs consistent with appendicitis. keep NPO, IVF and monitoring. surgery has been consulted 2. Dehydration- appears dehydrated. will hold HCTZ at this time and hydrate 3. MICHEL- unknown baseline cr. possible from dehydration and medication. hold HCTZ. obtain baseline values from PMD 4. UTI- currently on macrobid will hold iwth Cr levels and treat with ceftriaxone. repeat UCx sent. will see if PMD has C&S and determine duration as pt is unclear 5. HTN- controlled. monitor with diuretic held 6. DM- hold oral agents. BGM and ISS 7. DVT ppx- EAM 8. spoke with son present at bedside. all questions answered and verbalized understanding
--- NOTE | 2018-09-25 18:39 | HP ---
CHIEF COMPLAINT: abdominal pain, bilateral flank pain, "burning" headache PCP: HISTORY OF PRESENT ILLNESS: Patient is an 82 year old female with history of hypertension, hyperlipidemia, hypothyroidism, diabetes mellitus presents with complaint of abdominal pain, bilateral flank pain, "burning" headache. Flank pain is described as sharp intermittent pain that she states began 7 years ago after her cholecystectomy. She admits dysuria earlier this month, and states she was treated for urinary tract infection earlier with Macrobid. Endorses compliance with the antibiotic. Dysuria has since resolved, and she denies any hematuria. Currently flank pain is worsened with sitting, she denies palliative features. She also endorses vague abdominal pain has been intermittently ongoing for past three years. She describes sharp pain, localized to left lower quadrant that is non-radiating. Endorses formed bowel movements without yung blood, or melena. Tolerating regular diet of mostly home- cooked meals without nausea, or vomiting. Upon my encounter, patient admits abdominal pain has completely resolved. Patient also complains of a headach that is described as burning diffusely over the head ongoing intermittently for past two weeks. She denies trauma, fall, loss of consciousness, or any inciting events. States that the headache is associated with lacrimation and burning of her eyes. She denies changes in her vision, or pain with extra-ocular movements. Burning is mildly palliated with cool rag over head. Today, she denies subjective fevers, or chills. ER course was notable for: (1) CT head, abdomen pelvis. Chest radiograph (2) IV Ceftriaxone (3) PAST MEDICAL HISTORY: hypertension, hyperlipidemia, hypothyroidism, diabetes mellitus PAST SURGICAL HISTORY: cholecystectomy 7 years ago Social History: Smoking: denies Alcohol: denies Drugs: denies Family History: Patient is unable to provide family history. Allergies No Known Allergies Allergy (Verified 09/13/17 16:53) HOME MEDICATIONS: Home Medications Medication Instructions Recorded Atorvastatin Ca [Lipitor] 10 mg PO HS 09/13/17 Levothyroxine Sodium [Levoxyl] 50 mcg PO DAILY 09/13/17 Hydrochlorothiazide [Hctz -] 12.5 mg PO DAILY 09/25/18 Lisinopril [Prinivil] 20 mg PO BID 09/25/18 Nitrofurantoin Macrocrystal 100 mg PO BID 09/25/18 [Macrodantin] REVIEW OF SYSTEMS CONSTITUTIONAL: Admits: generalized weakness. Absent: fever, chills, diaphoresis, loss of appetite, weight change HEENT: Admits: rhinorrhea, lacrimation. Absent: rhinorrhea, nasal congestion, throat pain, throat swelling, difficulty swallowing, mouth swelling, ear pain, eye pain , visual changes CARDIOVASCULAR: Absent: chest pain, syncope, palpitations, irregular heart rate, lightheadedness , peripheral edema RESPIRATORY: Absent: cough, shortness of breath, dyspnea with exertion, orthopnea, wheezing, stridor, hemoptysis GASTROINTESTINAL: Admits: abdominal pain (resolved). Absent: abdominal distension, nausea, vomiting, diarrhea, constipation, melena, hematochezia GENITOURINARY: Admits: flank pain, dysuria (resolved). Absent: frequency, urgency, hesitancy, hematuria, genital pain MUSCULOSKELETAL: Absent: myalgia, arthralgia, joint swelling, back pain, neck pain SKIN: Absent: rash, itching, pallor HEMATOLOGIC/IMMUNOLOGIC: Absent: easy bleeding, easy bruising, lymphadenopathy, frequent infections ENDOCRINE: Absent: unexplained weight gain, unexplained weight loss, heat intolerance, cold intolerance NEUROLOGIC: Admits: headache. Absent: focal weakness or paresthesias, dizziness, unsteady gait, seizure, mental status changes, bladder or bowel incontinence PSYCHIATRIC: Absent: anxiety, depression, suicidal or homicidal ideation, hallucinations. PHYSICAL EXAMINATION Vital Signs - 24 hr 09/25/18 09/25/18 09/25/18 09:40 11:24 15:41 Temperature 97.7 F 100.7 F H 99.6 F Pulse Rate 107 H 77 Pulse Rate [ 88 77 Left Apical] Respiratory 24 H 16 16 Rate Blood Pressure 101/49 L 132/86 Blood Pressure 137/87 132/86 [Right Arm] O2 Sat by Pulse 94 L 96 98 Oximetry (%) 09/25/18 17:55 Temperature 99.2 F Pulse Rate Pulse Rate [ 78 Left Apical] Respiratory 16 Rate Blood Pressure Blood Pressure 139/70 [Right Arm] O2 Sat by Pulse 96 Oximetry (%) GENERAL: Awake, alert, and fully oriented, in no acute distress. HEAD: Normocephalic, atraumatic EYES: Pupils equal, round and reactive to light, extraocular movements intact, sclera anicteric, conjunctiva clear. EARS, NOSE, THROAT: Oropharynx clear without exudates. Dry mucous membranes. NECK: Supple without lymphadenopathy, or JVD. LUNGS: Breath sounds equal, clear to auscultation bilaterally. No wheezes, and no crackles. No accessory muscle use. HEART: Regular rate and rhythm, normal S1 and S2 without murmur, rub or gallop. ABDOMEN: Soft, tender to deep palpation at left lower quadrant, not distended. Hypoactive bowel sounds X4 quadrants. No guarding, no rebound tenderness. Negative McBurney point, negative psoas, sign, negative obturator sign. No hepatomegaly palpated or percussed. MUSCULOSKELETAL: Normal range of motion at all joints. No bony deformities or tenderness. No CVA tenderness bilaterally. UPPER EXTREMITIES: 2+ radial pulses bilaterally, warm, well-perfused. Strength 5 /5 bilateral upper extremities. LOWER EXTREMITIES: 2+ dorsalis pedis pulses, warm, well-perfused. No calf tenderness, no peripheral edema bilateral lower extremities. Strength 5/5 bilateral lower extremities. NEUROLOGICAL: Cranial nerves II-XII intact. Normal speech. No gross focal deficits. PSYCHIATRIC: Cooperative. Good eye contact. Appropriate mood and affect. SKIN: Warm, dry. Laboratory Results - last 24 hr 09/25/18 09/25/18 09/25/18 10:00 10:00 10:08 WBC 9.9 RBC 4.53 Hgb 14.2 Hct 40.3 D MCV 88.9 MCH 31.4 MCHC 35.3 RDW 13.7 Plt Count 174 MPV 9.5 Absolute Neuts (auto) 8.5 H Neutrophils % 85.8 H Lymphocytes % 4.2 L D Monocytes % 7.3 Eosinophils % 2.6 D Basophils % 0.1 Nucleated RBC % 0 PT with INR 12.50 INR 1.06 PTT (Actin FS) 28.6 VBG pH POC VBG pCO2 POC VBG pO2 Mixed VBG HCO3 Sodium Potassium Chloride Carbon Dioxide Anion Gap BUN Creatinine Creat Clearance w eGFR POC Glucometer Random Glucose Lactic Acid 1.9 Calcium Total Bilirubin AST ALT Alkaline Phosphatase Troponin I Total Protein Albumin Urine Color Urine Appearance Urine pH Ur Specific [place] Urine Protein Urine Glucose (UA) Urine Ketones Urine Blood Urine Nitrite Urine Bilirubin Urine Urobilinogen Ur Leukocyte Esterase Urine WBC (Auto) Urine RBC (Auto) Ur Epithelial Cells Urine Bacteria Hyaline Casts Urine Mucus Acetone, Qual Influenza A (Rapid) Influenza B (Rapid) 02/06/0309/25/18 09/25/18 10:08 10:08 10:36 WBC RBC Hgb Hct MCV MCH MCHC RDW Plt Count MPV Absolute Neuts (auto) Neutrophils % Lymphocytes % Monocytes % Eosinophils % Basophils % Nucleated RBC % PT with INR INR PTT (Actin FS) VBG pH 7.42 POC VBG pCO2 48.8 POC VBG pO2 19.3 L* Mixed VBG HCO3 31.2 H Sodium 137 Potassium 3.9 Chloride 98 Carbon Dioxide 30 Anion Gap 9 BUN 25 H Creatinine 1.3 Creat Clearance w eGFR 39.41 POC Glucometer Random Glucose 115 H Lactic Acid Calcium 9.5 Total Bilirubin 0.8 AST 31 ALT 22 Alkaline Phosphatase 112 Troponin I < 0.02 Total Protein 7.4 Albumin 3.9 Urine Color Urine Appearance Urine pH Ur Specific [place] Urine Protein Urine Glucose (UA) Urine Ketones Urine Blood Urine Nitrite Urine Bilirubin Urine Urobilinogen Ur Leukocyte Esterase Urine WBC (Auto) Urine RBC (Auto) Ur Epithelial Cells Urine Bacteria Hyaline Casts Urine Mucus Acetone, Qual Negative L Influenza A (Rapid) Influenza B (Rapid) 09/25/18 09/25/18 09/25/18 10:38 11:23 17:06 WBC RBC Hgb Hct MCV MCH MCHC RDW Plt Count MPV Absolute Neuts (auto) Neutrophils % Lymphocytes % Monocytes % Eosinophils % Basophils % Nucleated RBC % PT with INR INR PTT (Actin FS) VBG pH POC VBG pCO2 POC VBG pO2 Mixed VBG HCO3 Sodium Potassium Chloride Carbon Dioxide Anion Gap BUN Creatinine Creat Clearance w eGFR POC Glucometer 106 Random Glucose Lactic Acid Calcium Total Bilirubin AST ALT Alkaline Phosphatase Troponin I Total Protein Albumin Urine Color Yellow Urine Appearance Slcloudy Urine pH 6.0 Ur Specific [place] 1.018 Urine Protein Negative Urine Glucose (UA) Negative Urine Ketones Negative Urine Blood 1+ H Urine Nitrite Negative Urine Bilirubin Negative Urine Urobilinogen Negative Ur Leukocyte Esterase 1+ H D Urine WBC (Auto) 6 Urine RBC (Auto) 4 Ur Epithelial Cells Few Urine Bacteria Rare Hyaline Casts 1 Urine Mucus Rare Acetone, Qual Influenza A (Rapid) Negative Influenza B (Rapid) Negative ASSESSMENT/PLAN: Patient is an 82 year old female with history of hypertension, hyperlipidemia, hypothyroidism, diabetes mellitus presents with complaint of abdominal pain, bilateral flank pain, "burning" headache. Left lower quadrant abdominal pain -Unclear etiology. May be referred pain from appedicolith -CT abdomen pelvis shows appendicolith 5mm x 4mm without traumatic changes suggestive of appendicitis -General surgery consult (Dr. Chavarria) -NPO after midnight pending surgical evaluation -IV normal saline at 75mL/ hour Urinary tract infection -Patient has been treated with macrobid as outpatient -Ceftriaxone 1 gram IV daily -Follow urine cultures Burning headache -CT head negative for acute pathology. -May be secondary to allergic rhinitis as patient complains of associated lacrimation and burning eyes. -Ofirmev 1000mg IV Q6H PRN. Hypertension -Linsinopril 20mg Po daily -Hydrochlorothiazide 12.5 mg PO daily Hyperlipidemia -Atorvastatin 20mg PO HS Hypothyroid -Synthroid 50mcg PO daily FEN -IV normal saline at 75mL/ hour -Electrolytes within normal limits, follow CMP -NPO pending surgical evaluation Prophylaxis -Holding chemical anticoagulation pending surgical evaluation -SCDs bilateral lower extremities Disposition -Admit to medical- surgical floor Visit type - Emergency Visit Emergency Visit: Yes ED Registration Date: 09/25/18 Care time: The patient presented to the Emergency Department on the above date and was hospitalized for further evaluation of their emergent condition. - New Patient This patient is new to me today: Yes Date on this admission: 09/25/18 - Critical Care Critical Care patient: No
[2018-09-25] MEDS ORDERED: ACETAMINOPHEN 1000 MG/100 ML VIAL (NON FORMULARY) IVPB PRN (19:34)
--- NOTE | 2018-09-25 21:53 | CONSULT ---
Consult Consult Specialty:: surgery Reason for Consultation:: Abdominal pain - History of Present Illness History of Present Illness: 82 year old female with history of hypertension, hyperlipidemia, hypothyroidism , diabetes mellitus presents with complaint of abdominal pain, bilateral flank pain, "burning" headache. Flank pain is described as sharp intermittent pain that she states began several years ago after her cholecystectomy. She reports dysuria and was treated for urinary tract infection with Macrobid. Dysuria has since resolved, and she denies any hematuria. Currently flank pain is worsened with sitting,She denies nausea, vomiting or anorexia.She denies right side Abdominal pain - History Source History Provided By: Patient - Past Medical History Cardio/Vascular: Yes: HTN, Hyperlipdemia Renal/: Yes: UTI Endocrine: Yes: Hypothyroidism - Alcohol/Substance Use Hx Alcohol Use: No - Smoking History Smoking history: Never smoked Have you smoked in the past 12 months: No - Social History ADL: Family Assistance Occupation: retired History of Recent Travel: No Home Medications - Allergies Allergies/Adverse Reactions: Allergies Allergy/AdvReac Type Severity Reaction Status Date / Time No Known Allergies Allergy Verified 09/13/17 16:53 - Home Medications Home Medications: Ambulatory Orders Atorvastatin Ca [Lipitor] 10 mg PO HS 09/13/17 Levothyroxine Sodium [Levoxyl] 50 mcg PO DAILY 09/13/17 Hydrochlorothiazide [Hctz -] 12.5 mg PO DAILY 09/25/18 Lisinopril [Prinivil] 20 mg PO BID 09/25/18 Nitrofurantoin Macrocrystal [Macrodantin] 100 mg PO BID 09/25/18 Physical Exam Vital Signs: Vital Signs Temperature 99.2 F 09/25/18 17:55 Pulse Rate 78 09/25/18 17:55 Respiratory Rate 16 09/25/18 17:55 Blood Pressure 139/70 09/25/18 17:55 O2 Sat by Pulse Oximetry (%) 96 09/25/18 17:55 Labs: CBC, BMP 09/25/18 10:08 09/25/18 10:08 Imaging - Results Cat Scan: Report Reviewed, Image Reviewed Problem List - Problems (1) Appendicitis Code(s): K37 - UNSPECIFIED APPENDICITIS Qualifiers: Appendicitis type: acute appendicitis Acute appendicitis type: unspecified acute appendicitis type Qualified Code(s): K35.80 - Unspecified acute appendicitis Assessment/Plan 82 yr old female presents with left side Abdominal pain radiating to the flank intermittent in anture for several years. Ct scan shows possible appendicalith but no inflammatory changes and a narrow and thickened descending colon. No clinical evidence of appendicittis Symptoms are most likely related to the descending colon. Agree with plans for admission and observation but see no need for surgical intervention at this time. Recommendations Close observation for clinical evolution. GI consult for consideration for colonoscopy
[2018-09-25] MEDS ORDERED: ATORVASTATIN CA 10 MG TABLET (FP) PO SCH (22:00)
[2018-09-25] MEDS ORDERED: NITROFURANTOIN MACROCRYSTAL 100 MG PO SCH (22:00)
[2018-09-25] MEDS: LISINOPRIL 20 MG TABLET (FP) PO SCH (22:38)
[2018-09-26] MEDS ORDERED: LEVOTHYROXINE NA 25 MCG TABLET (FP) ONE (06:35)
[2018-09-26] MEDS ORDERED: LEVOTHYROXINE NA 50 MCG TABLET (FP) PO SCH (07:00)
[2018-09-26 07:49] LABS: HEMATOCRIT 37.3 % (32.4-45.2); HEMOGLOBIN 12.7 GM/dL (10.7-15.3); MCH 30.3 pg (25.7-33.7); MCHC 34.1 g/dl (32.0-36.0); MEAN CELL VOLUME 88.9 fl (80-96); MEAN PLT VOLUME 9.1 fl (7.5-11.1); PLATELET COUNT 181 K/MM3 (134-434); RDW 14.1 % (11.6-15.6); WHITE BLOOD COUNT 6.1 K/mm3 (4.0-10.0)
[2018-09-26 08:14] LABS: ALBUMIN 3.4 g/dl (3.4-5.0); ALK PHOS 97 U/L (45-117); ANION GAP 7 MMOL/L (8-16); BILIRUBIN,TOTAL 0.6 mg/dL (0.2-1); BLOOD UREA NITROGEN 20 mg/dL (7-18); CALCIUM 8.9 mg/dL (8.5-10.1); CHLORIDE 106 mmol/L (98-107); CO2 29 mmol/L (21-32); CREATININE 1.2 mg/dL (0.55-1.3); GLUCOSE,RANDOM 86 mg/dL (74-106); MAGNESIUM 2.3 mg/dL (1.8-2.4); PHOSPHOROUS 2.9 mg/dL (2.5-4.9); POTASSIUM 3.7 mmol/L (3.5-5.1); SGOT/AST 22 U/L (15-37); SGPT/ALT 20 U/L (13-61); SODIUM 141 mmol/L (136-145); TOT PROT 6.7 g/dl (6.4-8.2)
[2018-09-26] MEDS ORDERED: SODIUM CHLORIDE 1,000 ML IV SCH (08:21)
[2018-09-26] MEDS ORDERED: CEFTRIAXONE 1 GM in DEXTROSE 5%-WATER - 50 ML IVPB SCH (10:00)
[2018-09-26] MEDS ORDERED: HYDROCHLOROTHIAZIDE 12.5 MG CAPSULE (FP) PO SCH (10:00)
--- NOTE | 2018-09-26 14:39 | PN ---
Teaching Attending Note Name of Resident: Jason Cole ATTENDING PHYSICIAN STATEMENT I saw and evaluated the patient. I reviewed the resident's note and discussed the case with the resident. I agree with the resident's findings and plan as documented. SUBJECTIVE:abdominal pain has resolved. tolerated liquid diet. denies CP, SOB< fever, chills, N/V/C/D. had normal BM this AM OBJECTIVE: Last Vital Signs Temp Pulse Resp BP Pulse Ox 99.5 F 72 20 162/52 L 96 09/26/18 07:12 09/26/18 07:12 09/26/18 07:12 09/26/18 07:12 09/26/18 07:12 General NAD CV S1 S2 RRR no murmur/rub/gallop Lungs CTA B/L no wheezing/rales/rhonchi Abdomen soft NT/ND obese ASSESSMENT AND PLAN: 82yo F with PMH HTN, DM and dyslipidemia currently being treated for UTI with macrobid presented to the ER with LLQ pain and lethargy x 2 days. 1. Abdominal pain-pain all resolved. tolerated liquid diet will advance to regular. can f/u with PMD for GI evaluation if continues to have pain. 2. Dehydration- clinically improved. would cont to hold HCTZ at this time. can f /u with PMD to resume if indicated 3. MICHEL-Baseline Cr 1. trending down. will cont to hold HCTZ. should f/u with PMD for repeat labs to monitor Cr. caution with abx given elevated Cr. 4. UTI- today is day 9/10 of abx per PMD. informed pt to complete home medication tomorrow. to discard remaining pills. 5. HTN- controlled. monitor with diuretic held 6. DM- hold oral agents. BGM and ISS 7. DVT ppx- EAM 8. d/c home
--- NOTE | 2018-09-26 14:59 | DS ---
Physical Exam: SUBJECTIVE: Patient seen and examined at bedside. tolerating PO. no complaints. abd pain improved. denies fever, chills, cp, sob, n/v/d. OBJECTIVE: Vital Signs Period Temp Pulse Resp BP Sys/Ortiz Pulse Ox Last 24 Hr 99.2 F-99.6 F 72-85 16-20 130-162/52-86 96-98 PHYSICAL EXAM GENERAL: NAD AOX3 HEAD: NCAT EYES: Pupils equal, round and reactive to light, extraocular movements intact, sclera anicteric, conjunctiva clear. EARS, NOSE, THROAT: Oropharynx clear without exudates. Dry mucous membranes. NECK: Supple without lymphadenopathy, or JVD. LUNGS: CTAB HEART: RRR, normal S1 and S2 without murmur, rub or gallop. ABDOMEN: Soft, NTND + bowel sounds X4 quadrants. No guarding, no rebound tenderness. MUSCULOSKELETAL: Normal range of motion at all joints. No bony deformities or tenderness. No CVA tenderness bilaterally. UPPER EXTREMITIES: 2+ radial pulses bilaterally, warm, well-perfused. Strength 5 /5 bilateral upper extremities. LOWER EXTREMITIES: 2+ dorsalis pedis pulses, warm, well-perfused. No calf tenderness, no peripheral edema bilateral lower extremities. Strength 5/5 bilateral lower extremities. NEUROLOGICAL: Cranial nerves II-XII intact. Normal speech. No gross focal deficits. PSYCHIATRIC: Cooperative. Good eye contact. Appropriate mood and affect. SKIN: Warm, dry. LABS Laboratory Results - last 24 hr 09/25/18 09/25/18 09/25/18 10:36 17:06 21:49 WBC RBC Hgb Hct MCV MCH MCHC RDW Plt Count MPV Sodium Potassium Chloride Carbon Dioxide Anion Gap BUN Creatinine Creat Clearance w eGFR Random Glucose Lactic Acid 1.0 Calcium Phosphorus Magnesium Total Bilirubin AST ALT Alkaline Phosphatase Total Protein Albumin Acetone, Qual Negative L Influenza A (Rapid) Negative Influenza B (Rapid) Negative 09/26/18 09/26/18 06:30 06:30 WBC 6.1 RBC 4.20 Hgb 12.7 Hct 37.3 MCV 88.9 MCH 30.3 MCHC 34.1 RDW 14.1 Plt Count 181 MPV 9.1 Sodium 141 Potassium 3.7 Chloride 106 Carbon Dioxide 29 Anion Gap 7 L BUN 20 H Creatinine 1.2 Creat Clearance w eGFR 43.23 Random Glucose 86 Lactic Acid Calcium 8.9 Phosphorus 2.9 Magnesium 2.3 Total Bilirubin 0.6 AST 22 ALT 20 Alkaline Phosphatase 97 Total Protein 6.7 Albumin 3.4 Acetone, Qual Influenza A (Rapid) Influenza B (Rapid) HOSPITAL COURSE: Date of Admission:09/25/18 Date of Discharge: 09/26/18 82 year old female with history of hypertension, hyperlipidemia, hypothyroidism , diabetes mellitus presents with complaint of abdominal pain, bilateral flank pain, "burning" headache. Pt was admitted w/ LLQ abd pain, DING, and chronic UTI. CT head was negative and CT abdomen pelvis shows appendicolith 5mm x 4mm without traumatic changes suggestive of appendicitis. Pt was given pain meds and fluids and responded well. Surgery (Dr. Chavarria) was consulted and it was decided that there is no need for surgical intervention at this time. Pt had UTI prior to admission and was taking Macrobid (prescribed for 10 days). Pt was found w/ MICHEL Cr 1.3 ( baseline ~1 per PCP) so pt was switched to CTX. Pt Cr improved w/ fluids and is now day 9 of abx tx. Pt informed to continue macrobid for 1 more day. Ucx were contaminated, rpt ucx taken in hospital. Spoke w/ PCP who will f/u w/ the pt regards to results of rpt Ucx. HCTZ will be held on dc given presentation of likely prerenal MICHEL 2/2 medication/diuretic. Pt instructed to monitor BP at home. Pt stable and ready for dc. Minutes to complete discharge: 38 Discharge Summary Reason For Visit: URINSRY TRSCT INFECTION,APPENDICITIS Current Active Problems Appendicitis (Acute) Hypertension (Chronic) Hypothyroid (Chronic) Lipidemia (Chronic) UTI (urinary tract infection) (Chronic) Condition: Stable - Instructions Diet, Activity, Other Instructions: You came in with abdominal pain and headache. CT head was normal and your CT scan of your stomach showed a stone in your appendix but did not show any signs of infection. You were seen by surgery (Dr. Chavarria) and it was decided that there is no need for surgical intervention at this time. We provided you with fluids, supportive care, and pain meds and your symptoms improved. You came in with a urinary tract infection and were already taking antibiotics. We continued you on antibiotics to treat your infection. Please continue taking macrobid 100mg twice a day (antibiotic) for one more day upon discharge (last dose on 2/12/19). Please have your primary care physician follow up on your urine culture results. Your blood tests showed that your were a little dehydrated and that your creatinine level was elevated; therefore please stop taking your hydrochlorothiazide (HCTZ) medication. Please continue your other home meds. Please monitor your blood pressure at home. Please monitor your sugars at home Please follow up with your primary care physician within 1 week Please follow up with Dr. Chavarria within 1-2 weeks If you experience any worsening of abdominal pain, or fevers, chills, nausea, vomit, diarrhea, blood in stools, please call 911 or come to the ER. Referrals: Thomas Prescott MD [Staff Physician] - 1 Week Edwin Chavarria [Staff Physician] - 2 Weeks Disposition: HOME - Home Medications Comprehensive Discharge Medication List: Ambulatory Orders Atorvastatin Ca [Lipitor] 10 mg PO HS 09/13/17 Levothyroxine Sodium [Levoxyl] 50 mcg PO DAILY 09/13/17 Lisinopril [Prinivil] 20 mg PO BID 09/25/18 Nitrofurantoin Macrocrystal [Macrodantin] 100 mg PO BID 09/25/18 Hydrocodone/Acetaminophen [Hydrocodone-Acetamin 5-325 mg] 1 tablet PO Q6H PRN This patient is new to me today: Yes Date on this admission: 09/26/18 Emergency Visit: Yes ED Registration Date: 09/25/18 Care time: The patient presented to the Emergency Department on the above date and was hospitalized for further evaluation of their emergent condition. Critical Care patient: No - Discharge Referral Referred to [facility] No
--- NOTE | 2018-09-26 15:27 | PN ---
Progress Note (short form) - Note Progress Note: Surgery Patient seen and examined at bedside with no complaints. Patient states she had lots of pain last night which has since resolved. She is tolerating her clear diet and denies any n/v/, cp or SOB. Vital Signs Temp 99.5 F 09/26/18 07:12 Pulse 72 09/26/18 07:12 Resp 20 09/26/18 07:12 BP 162/52 L 09/26/18 07:12 Pulse Ox 96 09/26/18 07:12 Intake & Output 09/25/18 09/26/18 09/26/18 23:59 11:59 23:59 Other: Voiding Method Toilet CBC, BMP 09/26/18 06:30 09/26/18 06:30 PE: A&Ox3, NAD Unlabored resp on RA ABD: obese, soft, NT, ND LE: compartments soft, Non-tender, legs and feet warm and well perfused. Problem List - Problems (1) Abdominal pain Assessment/Plan: Patient improving and tolerating diet. 1) Continue to advance diet as tolerated. 2) OOB as tolerated 3) F/U GI recommendations. Code(s): R10.9 - UNSPECIFIED ABDOMINAL PAIN
[2018-09-26 15:35] VITALS: BP 120/52; PULSE 77; TEMP 98.4
[2018-09-26 15:42] VITALS: BMI 21.7
[2018-09-26] MEDS ORDERED: cefTRIAXone SODIUM 1 GM VIAL ONE (16:29)
[2018-09-26] MEDS ORDERED: DEXTROSE 5%-WATER - 50 ML IVPB ONE (16:30)
[2018-09-26] MEDS: LISINOPRIL 20 MG TABLET (FP) PO SCH (16:31)
--- NOTE | 2018-09-26 19:24 | PN ---
Progress Note (short form) - Note Progress Note: tolerating diet denies any abdominal pain VSS Afeb Doing well Follow up with Dr. Prescott Recommend GI eval and colonoscopy Problem List - Problems (1) Appendicitis Code(s): K37 - UNSPECIFIED APPENDICITIS Qualifiers: Appendicitis type: acute appendicitis Acute appendicitis type: unspecified acute appendicitis type Qualified Code(s): K35.80 - Unspecified acute appendicitis
== END 2018-09-26 19:20 | disposition home or self-care (01) | DRG 683 ==
LOC: JER 09:28 → JERBED 14:41 → J8W 09-26 08:41
PROVIDERS: ADMIT Internal Medicine; ATTEND Internal Medicine
DX: N17.9 Acute kidney failure, unspecified (principal); N39.0 Urinary tract infection, site not specified; K37 Unspecified appendicitis; I10 Essential (primary) hypertension; E03.9 Hypothyroidism, unspecified; E78.5 Hyperlipidemia, unspecified; E11.9 Type 2 diabetes mellitus without complications; E86.0 Dehydration; R51 Headache; R10.32 Left lower quadrant pain
CPT/HCPCS: 36415; 70450-TC; 71045-TC-FY; 74176-TC; 80053; 81003; 81015; 82009; 82803; 82962; 83605; 83735; 84100; 84484; 85025; 85027; 85610; 85730; 87040; 87086; 87804; 93005; 93010; 99285-25; J0131; J7030

== ENCOUNTER 2018-11-28 03:41 | Inpatient (IN) | payer OTHER ==
[2018-11-28 04:35] VITALS: BMI 26.3
--- NOTE | 2018-11-28 04:40 | PDOC ---
Attending Attestation - Resident Resident Name: Natalie Mora - ED Attending Attestation I have performed the following: I have examined & evaluated the patient, The case was reviewed & discussed with the resident, I agree w/resident's findings & plan - HPI HPI: 12/02/18 19:28 Pt comes with LLQ pain. SHe also has diffuse pain in he abd and entire body. Multiple complaints. Pt has a WBC elevation. SHe feels warm and she appears uncomfortable. - Physicial Exam PE: 11/28/18 06:30 Agree with resident exam. - Medical Decision Making 11/28/18 06:28 Pt comes with LLQ pain. SHe also has diffuse pain in he abd and entire body. Multiple complaints. Pt has a WBC elevation. SHe feels warm and she appears uncomfortable. She has clear urine on cath. We are awaiting results. Still awaiting chemistry result, as 1 chem was hemolyzed. Pt will get CT scan, as she began vomiting after morphine. Pt was treated with NSS and zofran and pepcid. 11/28/18 06:33 If UA is normal/CT shows diverticulitis/colitis, pt may be discharged home with augmentin 875BID x 1 week. Otherwise, day team wik further disposition the patient.
[2018-11-28] MEDS ORDERED: LACTULOSE 20 GM/30 ML UDC (FOR ORAL USE ONLY) PO ONE (04:42)
[2018-11-28] MEDS ORDERED: SODIUM CHLORIDE 0.9% 500 ML INFUS.BAG IV ONE (04:43)
--- NOTE | 2018-11-28 04:44 | PDOC ---
History of Present Illness - General Chief Complaint: Pain, Acute Stated Complaint: GENERALIZED BODY PAIN Time Seen by Provider: 11/28/18 04:25 History Source: Patient, Family Exam Limitations: Language Barrier - History of Present Illness Initial Comments: 11/28/18 04:43 83 y/o female with PMH of HTN, HLD, DM recent UTI who presents to the ED with complaints of LLQ pain which radiates to her back in addition to general body malise of fevers. Of note, she was here back in September with similar complaints and diverticulitis was ruled out at that time. per her son she has been in a lot of pain over the past day- she is having associated body aches , headaches, and chills but no nausea/vomiting. The pain has been constant over the past day. She also endorses having some pain on urination. Her last bowel movement was yesterday which was formed and she denies any complaints of constipation. She did not have GI follow up when she left the hospital back in . She denies any recent illnesses, any sick contacts or recent travel. 11/28/18 04:44 11/28/18 04:46 Timing/Duration: constant Severity: moderate Associated Symptoms: reports: fever/chills, headaches, nausea/vomiting. denies : chest pain, cough Past History - Travel Traveled outside of the country in the last 30 days: No Close contact w/someone who was outside of country & ill: No - Past Medical History Allergies/Adverse Reactions: Allergies Allergy/AdvReac Type Severity Reaction Status Date / Time No Known Allergies Allergy Verified 11/28/18 04:35 Home Medications: Ambulatory Orders Atorvastatin Ca [Lipitor] 10 mg PO HS 09/13/17 Levothyroxine Sodium [Levoxyl] 50 mcg PO DAILY 09/13/17 Lisinopril [Prinivil] 20 mg PO BID 09/25/18 Hydrocodone/Acetaminophen [Hydrocodone-Acetamin 5-325 mg] 1 tablet PO Q6H PRN Hydrochlorothiazide [Hctz -] 12.5 mg PO DAILY 11/28/18 COPD: No HTN: Yes Hypercholesterolemia: Yes Thyroid Disease: Yes - Suicide/Smoking/Psychosocial Hx Smoking History: Never smoked Have you smoked in the past 12 months: No Information on smoking cessation initiated: No Hx Alcohol Use: No Drug/Substance Use Hx: No Substance Use Type: None Review of Systems - Review of Systems Able to Perform ROS?: Yes Is the patient limited Slovenian proficient: Yes Constitutional: Yes: Chills HEENTM: No: Blurred Vision Respiratory: No: Cough, Shortness of Breath Cardiac (ROS): No: Chest Pain, Edema, Palpitations ABD/GI: Yes: Other (left lower quadrant pain) : Yes: Burning, Dysuria. No: Frequency Musculoskeletal: Yes: Back Pain (chronic B/L back psin) Neurological: Yes: Headache *Physical Exam - Vital Signs Last Vital Signs Temp Pulse Resp BP Pulse Ox 98.4 F 87 20 158/70 98 11/28/18 03:41 11/28/18 03:41 11/28/18 03:41 11/28/18 03:41 11/28/18 03:41 - Physical Exam General Appearance: Yes: Mild Distress Neck: positive: Trachea midline Respiratory/Chest: positive: Lungs Clear, Normal Breath Sounds Cardiovascular: positive: Regular Rhythm, Regular Rate, S1, S2. negative: Edema Gastrointestinal/Abdominal: positive: Normal Bowel Sounds, Tender (left lower quadrant tenderness) Musculoskeletal: negative: CVA Tenderness Neurologic: positive: Fully Oriented, Alert ED Treatment Course - LABORATORY CBC & Chemistry Diagram: 11/28/18 05:09 11/28/18 05:40 Medical Decision Making - Medical Decision Making 11/28/18 04:52 cbc/cmp/lipase fluids/lactulose/ zofran/pepcid CT scan pending 11/28/18 05:52 11/28/18 06:28 *DC/Admit/Observation/Transfer - Discharge Dispostion Condition at time of disposition: Fair - Referrals Referrals: Thomas Prescott MD [Primary Care Provider] - - Patient Instructions - Post Discharge Activity
[2018-11-28] MEDS ORDERED: LACTULOSE 20 GM/30 ML UDC (FOR ORAL USE ONLY) ONE (04:57)
[2018-11-28 05:27] LABS: BASO % 0.2 % (0-2.0); EOS % 0.3 % (0-4.5); LYMPH % 4.3 % (8-40); MCH 30.2 pg (25.7-33.7); MCHC 33.4 g/dl (32.0-36.0); MEAN CELL VOLUME 90.3 fl (80-96); MEAN PLT VOLUME 9.1 fl (7.5-11.1); MONO % 2.5 % (3.8-10.2); NEUT % 92.7 % (42.8-82.8); PLATELET COUNT 224 K/MM3 (134-434); RBC 4.66 M/mm3 (3.60-5.2); RDW 14.4 % (11.6-15.6); WHITE BLOOD COUNT 10.1 K/mm3 (4.0-10.0)
[2018-11-28] MEDS ORDERED: morphine CARPU-JECT 2 MG/1 ML DISP.SYRIN IVPUSH ONE (05:57)
[2018-11-28] MEDS ORDERED: MORPHINE SULFATE 2 MG/ML VIAL IVPUSH ONE (05:58)
[2018-11-28] MEDS ORDERED: MORPHINE SULFATE 2 MG/ML VIAL ONE (05:59)
[2018-11-28] MEDS ORDERED: ONDANSETRON 4 MG/2 ML VIAL IVPUSH ONE (06:08)
[2018-11-28] MEDS ORDERED: ONDANSETRON 4 MG/2 ML VIAL ONE (06:11)
[2018-11-28] MEDS ORDERED: FAMOTIDINE 20 MG/50 ML IVPB 20 MG/50 ML MG IVPB ONE ×2 (06:12→06:15)
[2018-11-28 06:13] LABS: ALBUMIN 3.6 g/dl (3.4-5.0); ALK PHOS 91 U/L (45-117); ANION GAP 7 MMOL/L (8-16); BILIRUBIN,TOTAL 0.6 mg/dL (0.2-1); BLOOD UREA NITROGEN 16 mg/dL (7-18); CALCIUM 8.6 mg/dL (8.5-10.1); CHLORIDE 109 mmol/L (98-107); CO2 28 mmol/L (21-32); CREATININE 1.2 mg/dL (0.55-1.3); GLUCOSE,RANDOM 94 mg/dL (74-106); LIPASE 170 U/L (73-393); POTASSIUM 3.9 mmol/L (3.5-5.1); SGOT/AST 30 U/L (15-37); SGPT/ALT 20 U/L (13-61); SODIUM 144 mmol/L (136-145); TOT PROT 6.7 g/dl (6.4-8.2)
[2018-11-28] MEDS ORDERED: CEFTRIAXONE 1 GM in DEXTROSE 5%-WATER - 50 ML IVPB ONE (06:18)
[2018-11-28] MEDS ORDERED: AMPICILLIN NA/SULBACTAM NA 1.5 GM in SODIUM CHLORIDE 100 ML IVPB ONE (06:20)
[2018-11-28 08:06] LABS: PH,URINE 5.5 (5.0-8.0); URINE APPEARANCE CLEAR; URINE BILIRUBIN NEGATIVE (NEGATIVE); URINE COLOR YELLOW; URINE GLUCOSE (UA) NEGATIVE (NEGATIVE); URINE KETONE NEGATIVE (NEGATIVE); URINE LEUK ESTERASE NEGATIVE (NEGATIVE); URINE NITRITE NEGATIVE (NEGATIVE); URINE PROTEIN NEGATIVE (NEGATIVE); URINE UROBILINOGEN 0.2 mg/dL (0.2-1.0)
[2018-11-28] MEDS ORDERED: morphine SULFATE 4 MG/ML VIAL IVPUSH ONE (08:19)
[2018-11-28] MEDS ORDERED: morphine SULFATE 4 MG/ML VIAL ONE (08:39)
--- NOTE | 2018-11-28 09:16 | PDOC ---
*Physical Exam - Vital Signs Last Vital Signs Temp Pulse Resp BP Pulse Ox 99.7 F H 89 17 113/61 91 L 11/28/18 08:46 11/28/18 08:46 11/28/18 08:46 11/28/18 08:46 11/28/18 08:46 ED Treatment Course - LABORATORY CBC & Chemistry Diagram: 11/28/18 05:09 11/28/18 05:40 - ADDITIONAL ORDERS Additional order review: Laboratory Results 11/28/18 11/28/18 11/28/18 07:54 05:40 05:09 Sodium 144 Cancelled Potassium 3.9 Cancelled Chloride 109 H Cancelled Carbon Dioxide 28 Cancelled Anion Gap 7 L Cancelled BUN 16 Cancelled Creatinine 1.2 Cancelled Creat Clearance w eGFR 43.12 Cancelled Random Glucose 94 Cancelled Calcium 8.6 Cancelled Total Bilirubin 0.6 Cancelled AST 30 Cancelled ALT 20 Cancelled Alkaline Phosphatase 91 Cancelled Total Protein 6.7 Cancelled Albumin 3.6 Cancelled Lipase 170 Cancelled Urine Color Yellow Urine Appearance Clear Urine pH 5.5 Ur Specific Stokes 1.010 Urine Protein Negative Urine Glucose (UA) Negative Urine Ketones Negative Urine Blood Negative Urine Nitrite Negative Urine Bilirubin Negative Urine Urobilinogen 0.2 Ur Leukocyte Esterase Negative 11/28/18 05:09 RBC 4.66 MCV 90.3 MCHC 33.4 RDW 14.4 MPV 9.1 Neutrophils % 92.7 H Lymphocytes % 4.3 L Monocytes % 2.5 L Eosinophils % 0.3 D Basophils % 0.2 - RADIOLOGY Radiology Studies Ordered: Category Date Time Status CHEST X-RAY PORTABLE* [RAD] Stat Radiology 11/28/18 08:58 Taken - Medications Given in the ED: ED Medications Discontinued Medications Generic Name Dose Route Start Last Admin Trade Name Freq PRN Reason Stop Dose Admin Famotidine/Sodium Chloride 20 mg in 50 mls @ 100 mls/hr 11/28/18 06:15 06:22 Pepcid 20 Mg Premixed Ivpb - IVPB 11/28/18 06:44 100 mls/hr ONCE ONE Administration Ceftriaxone Sodium 1 gm/ 50 mls @ 100 mls/hr 11/28/18 06:18 11/28/18 07:43 Dextrose IVPB 11/28/18 06:47 Not Given ONCE ONE Ampicillin Sodium/Sulbactam 100 mls @ 200 mls/hr 11/28/18 06:20 11/28/18 06: 38 Sodium 1.5 gm/ Sodium Chloride IVPB 11/28/18 06:49 200 mls/hr ONCE ONE Administration Lactulose 20 gm 11/28/18 04:42 11/28/18 05:18 Cephulac (Oral Use) PO 11/28/18 04:43 20 gm ONCE ONE Administration Morphine Sulfate 2 mg 11/28/18 05:57 11/28/18 06:01 Morphine Injection - IVPUSH 11/28/18 05:58 2 mg ONCE ONE Administration Morphine Sulfate 2 mg 11/28/18 05:58 11/28/18 07:00 Morphine Sulfate IVPUSH 11/28/18 05:59 Not Given ONCE ONE Morphine Sulfate 4 mg 11/28/18 08:19 11/28/18 08:45 Morphine Sulfate IVPUSH 11/28/18 08:20 4 mg ONCE ONE Administration Ondansetron HCl 4 mg 11/28/18 06:08 11/28/18 06:22 Zofran Injection IVPUSH 11/28/18 06:09 4 mg ONCE ONE Administration Sodium Chloride 500 ml 11/28/18 04:43 11/28/18 05:11 Normal Saline - IV 11/28/18 04:44 500 ml ONCE ONE Administration Medical Decision Making - Medical Decision Making 11/28/18 09:14 Patient received on sign out, Ct scan negatuive. Patient still exquisitely tender and guarding LLQ. Now complaining of acute on chronic headache. Called Dr. Prescott who asked for Dr. Presley to admit. *DC/Admit/Observation/Transfer Diagnosis at time of Disposition: Abdominal pain - Discharge Dispostion Condition at time of disposition: Fair Decision to Admit order: Yes - Prescriptions Prescriptions: Amoxicillin/Potassium Clav [Augmentin 875-125 Tablet] 1 each PO BID #14 tablet - Referrals Referrals: Thomas Prescott MD [Primary Care Provider] - - Patient Instructions - Post Discharge Activity
[2018-11-28 10:40] LABS: ANISOCYTOSIS 0; HELMET CELLS 0; HOWELL-JOLLY BODIES 0; MACROCYTOSIS 0; OVALOCYTE 0; PLATELET ESTIMATE NORMAL; ROULEAU 0; SICKELED CELLS 0; TARGET CELLS 0; TEAR DROP CELLS 0; TOXIC GRANULATION 0
--- NOTE | 2018-11-28 16:35 | HP ---
Admitting History and Physical - Primary Care Physician PCP: Parker Presley - Admission Chief Complaint: abd pain History of Present Illness: 83 y/o female with PMH of HTN, HLD, DM , LBP, who presents to the ED with complaints of LLQ pain which radiates to her back in addition to general body aches. Of note, she was here back in September with similar complaints and diverticulitis was ruled out at that time. She has been in a lot of pain over the past day- along with malaise,chills but no nausea/vomiting/diarrhea. The pain has been constant over the past day, and c/o some pain on urination. Her last bowel movement was yesterday which was formed and she denies any complaints of constipation. She was seen (and cleared) by surgeon on her last admission, but did not have GI follow up when she left the hospital back in september. She denies any recent illnesses, any sick contacts or recent travel, but c/o chronic LBP for which she is Rx'd Hydrocodone by her PCP. 11/28/18 04:44 History Source: Patient, Medical Record Limitations to Obtaining History: Language Barrier, Poor Historian - Past Medical History Cardiovascular: Yes: HTN, Hyperlipdemia, Murmur Gastrointestinal: Yes: Other (recurrent abd pains much like she is having now) Renal/: Yes: Renal Inusuff, UTI ...: No Musculoskeletal: Yes: Chronic low back pain (with possible Lt radiculopathy) Endocrine: Yes: Hypothyroidism - Past Surgical History Past Surgical History: Yes: Cholecystectomy Additional Past Surgical History: Hx empyema post cholecystectomy - Smoking History Smoking history: Never smoked Have you smoked in the past 12 months: No - Alcohol/Substance Use Hx Alcohol Use: No History of Substance Use: reports: None - Social History Usual Living Arrangement: Yes: With Significant Other ADL: Family Assistance Occupation: retired History of Recent Travel: No Home Medications - Allergies Allergies/Adverse Reactions: Allergies Allergy/AdvReac Type Severity Reaction Status Date / Time No Known Allergies Allergy Verified 11/28/18 04:35 - Home Medications Home Medications: Ambulatory Orders Atorvastatin Ca [Lipitor] 10 mg PO HS 09/13/17 Levothyroxine Sodium [Levoxyl] 50 mcg PO DAILY 09/13/17 Lisinopril [Prinivil] 20 mg PO BID 09/25/18 Hydrocodone/Acetaminophen [Hydrocodone-Acetamin 5-325 mg] 1 tablet PO Q6H PRN Amoxicillin/Potassium Clav [Augmentin 875-125 Tablet] 1 each PO BID #14 tablet 11/28/18 Hydrochlorothiazide [Hctz -] 12.5 mg PO DAILY 11/28/18 Review of Systems - Review of Systems Constitutional: reports: Malaise Eyes: reports: No Symptoms HENT: reports: No Symptoms Neck: reports: No Symptoms Cardiovascular: reports: No Symptoms Respiratory: reports: No Symptoms Gastrointestinal: reports: Abdominal Pain Genitourinary: reports: Dysuria Musculoskeletal: reports: Back Pain Integumentary: reports: No Symptoms Neurological: reports: No Symptoms Endocrine: reports: No Symptoms Hematology/Lymphatic: reports: No Symptoms Psychiatric: reports: No Symptoms Physical Examination Vital Signs: Vital Signs Temperature 99.7 F H 11/28/18 08:46 Pulse Rate 89 11/28/18 08:46 Respiratory Rate 17 11/28/18 08:46 Blood Pressure 113/61 11/28/18 08:46 O2 Sat by Pulse Oximetry (%) 91 L 11/28/18 08:46 Findings/Remarks: found awake in mild painful distress skin--NL color eyes--eomi oral--poor dentition neck--supple, no masses lungs--grossly clear heart--RR 2/6 M breasts--BY PCP abd--soft, BS+, high pitched; non distended, non rigid, (+) exquisite LLQ tenderness back--Lt flank tenderness ext--degen changes, BS+, no CCE, DP 2+/2+ neuro--alert, anxious, coherent; moves all E's purposefully; no gross deficits Labs: CBC, BMP 11/28/18 05:09 11/28/18 05:40 CBCD WBC 10.1 K/mm3 (4.0-10.0) H 11/28/18 05:09 RBC 4.66 M/mm3 (3.60-5.2) 11/28/18 05:09 Hgb 14.0 GM/dL (10.7-15.3) 11/28/18 05:09 Hct 42.0 % (32.4-45.2) 11/28/18 05:09 MCV 90.3 fl (80-96) 11/28/18 05:09 MCHC 33.4 g/dl (32.0-36.0) 11/28/18 05:09 RDW 14.4 % (11.6-15.6) 11/28/18 05:09 Plt Count 224 K/MM3 (134-434) D 11/28/18 05:09 MPV 9.1 fl (7.5-11.1) 11/28/18 05:09 CMP Sodium 144 mmol/L (136-145) 11/28/18 05:40 Potassium 3.9 mmol/L (3.5-5.1) 11/28/18 05:40 Chloride 109 mmol/L (98-107) H 11/28/18 05:40 Carbon Dioxide 28 mmol/L (21-32) 11/28/18 05:40 Anion Gap 7 MMOL/L (8-16) L 11/28/18 05:40 BUN 16 mg/dL (7-18) 11/28/18 05:40 Creatinine 1.2 mg/dL (0.55-1.3) 11/28/18 05:40 Creat Clearance w eGFR 43.12 (>60) 11/28/18 05:40 Random Glucose 94 mg/dL (74-106) 11/28/18 05:40 Calcium 8.6 mg/dL (8.5-10.1) 11/28/18 05:40 Total Bilirubin 0.6 mg/dL (0.2-1) 11/28/18 05:40 AST 30 U/L (15-37) 11/28/18 05:40 ALT 20 U/L (13-61) 11/28/18 05:40 Alkaline Phosphatase 91 U/L (45-117) 11/28/18 05:40 Total Protein 6.7 g/dl (6.4-8.2) 11/28/18 05:40 Albumin 3.6 g/dl (3.4-5.0) 11/28/18 05:40 Urine Test Results Urine Color Yellow 11/28/18 07:54 Urine Appearance Clear 11/28/18 07:54 Urine pH 5.5 (5.0-8.0) 11/28/18 07:54 Ur Specific [place] 1.010 (1.010-1.035) 11/28/18 07:54 Urine Protein Negative (NEGATIVE) 11/28/18 07:54 Urine Glucose (UA) Negative (NEGATIVE) 11/28/18 07:54 Urine Ketones Negative (NEGATIVE) 11/28/18 07:54 Urine Blood Negative (NEGATIVE) 11/28/18 07:54 Urine Nitrite Negative (NEGATIVE) 11/28/18 07:54 Urine Bilirubin Negative (NEGATIVE) 11/28/18 07:54 Ur Leukocyte Esterase Negative (NEGATIVE) 11/28/18 07:54 Imaging - Results Chest X-ray: Report Reviewed Cat Scan: Report Reviewed Problem List - Problems (1) Abdominal pain Assessment/Plan: acute recurrent pain; cause not clear though clinically appears to be emanating from large intestine; however, CT report notes no abd or pelvic pathology. There was question of an appendicolith as a possible cause of this contralateral abd pain on previous admission, though it was then felt it was due to concomitant UTI. The issue of a Lt sided radiculopathy was also considered. She has not had a proper GI (colonoscopy) eval post discharge. PLAN : Gi & Surg consult; given LT lutz shift and low grade fever; will cover w/ Abs. Code(s): R10.9 - UNSPECIFIED ABDOMINAL PAIN Qualifiers: Abdominal location: left lower quadrant Qualified Code(s): R10.32 - Left lower quadrant pain (2) Lipidemia Assessment/Plan: on statin, but will put it on hold for now Code(s): E78.5 - HYPERLIPIDEMIA, UNSPECIFIED Qualifiers: Hyperlipidemia type: unspecified Qualified Code(s): E78.5 - Hyperlipidemia , unspecified (3) Hypothyroid Assessment/Plan: euthyroid; to check TFTs Code(s): E03.9 - HYPOTHYROIDISM, UNSPECIFIED Qualifiers: Hypothyroidism type: unspecified Qualified Code(s): E03.9 - Hypothyroidism , unspecified (4) Hypertension Assessment/Plan: BP on low end; will hold ALEX for now Code(s): I10 - ESSENTIAL (PRIMARY) HYPERTENSION Qualifiers: Hypertension type: other secondary hypertension Qualified Code(s): I15.8 - Other secondary hypertension (5) Low back pain potentially associated with radiculopathy Assessment/Plan: which has postulated as being a cause for this Lt sided abd pain; PLAN: CT of T - and LSS Code(s): M54.5 - LOW BACK PAIN Assessment/Plan 83 YO F with acute recurrence of LLQ pain, without obvious GI; findings on imaging, but pain severe enough to warrant use of opiates, and who requires further evaluation ~~~~~~~~~~~~~~~~ Dr Presley
[2018-11-28] MEDS ORDERED: HYDROmorphone HCl 2 MG/ML VIAL IVPUSH PRN (17:02)
[2018-11-28] MEDS: DEXTROSE 5%-0.45% SALINE 1,000 ML IV SCH (17:26)
[2018-11-28] MEDS: AMPICILLIN NA/SULBACTAM NA 1.5 GM in SODIUM CHLORIDE 100 ML IVPB SCH (18:50)
[2018-11-29] MEDS: AMPICILLIN NA/SULBACTAM NA 1.5 GM in SODIUM CHLORIDE 100 ML IVPB SCH ×3 (02:26→17:50)
[2018-11-29] MEDS: LEVOTHYROXINE NA 50 MCG TABLET (FP) PO SCH (06:17)
[2018-11-29 07:17] LABS: BASO % 0.2 % (0-2.0); EOS % 3.4 % (0-4.5); HEMATOCRIT 35.3 % (32.4-45.2); HEMOGLOBIN 12.3 GM/dL (10.7-15.3); MCH 31.1 pg (25.7-33.7); MCHC 34.8 g/dl (32.0-36.0); MEAN CELL VOLUME 89.5 fl (80-96); MEAN PLT VOLUME 8.9 fl (7.5-11.1); MONO % 5.2 % (3.8-10.2); NEUT % 81.2 % (42.8-82.8); PLATELET COUNT 184 K/MM3 (134-434); RBC 3.94 M/mm3 (3.60-5.2); RDW 13.9 % (11.6-15.6); WHITE BLOOD COUNT 9.9 K/mm3 (4.0-10.0)
[2018-11-29 07:38] LABS: ANION GAP 5 MMOL/L (8-16); BLOOD UREA NITROGEN 18 mg/dL (7-18); CALCIUM 8.7 mg/dL (8.5-10.1); CHLORIDE 107 mmol/L (98-107); CO2 29 mmol/L (21-32); CREATININE 1.3 mg/dL (0.55-1.3); GLUCOSE,RANDOM 91 mg/dL (74-106); SODIUM 141 mmol/L (136-145)
[2018-11-29] MEDS: ENOXAPARIN NA (PORCINE) 40 MG/0.4 ML DISP.SYRIN SQ SCH (10:46)
--- NOTE | 2018-11-29 12:44 | PN ---
Progress Note (short form) - Note Progress Note: ^^^^^^^^^^ medical ^^^^^^^^^^^ Current Medications Docusate Sodium (Colace -) 100 mg PO BID [facility] Enoxaparin Sodium (Lovenox -) 40 mg SQ DAILY [facility] Last Admin: 11/29/18 10:46 Dose: 40 mg Hydromorphone HCl (Dilaudid Vial -) 1 mg IVPUSH Q6H PRN PRN Reason: PAIN LEVEL 6-10 Ampicillin Sodium/Sulbactam (Sodium 1.5 gm/ Sodium Chloride) 100 mls @ 200 mls/ hr IVPB Q8H-IV [facility] Last Admin: 11/29/18 10:46 Dose: 200 mls/hr Dextrose/Sodium Chloride (D5-1/2ns -) 1,000 mls @ 42 mls/hr IV ASDIR [facility] Last Admin: 11/28/18 17:26 Dose: 42 mls/hr Levothyroxine Sodium (Synthroid -) 50 mcg PO DAILY@0700 [facility] Last Admin: 11/29/18 06:17 Dose: 50 mcg Polyethylene Glycol (Miralax (For Daily Use) -) 17 gm PO DAILY [facility] Laboratory Results - last 24 hr 11/29/18 11/29/18 11/29/18 06:00 06:00 06:00 WBC 9.9 RBC 3.94 Hgb 12.3 Hct 35.3 D MCV 89.5 MCH 31.1 MCHC 34.8 RDW 13.9 Plt Count 184 MPV 8.9 Absolute Neuts (auto) 8.0 Neutrophils % 81.2 Lymphocytes % 10.0 D Monocytes % 5.2 D Eosinophils % 3.4 D Basophils % 0.2 Nucleated RBC % 0 Sodium 141 Potassium 4.0 Chloride 107 Carbon Dioxide 29 Anion Gap 5 L BUN 18 Creatinine 1.3 Creat Clearance w eGFR 39.31 Random Glucose 91 Hemoglobin A1c % 4.9 Calcium 8.7 TSH 1.27 Vital Signs Temperature 98.6 F 11/29/18 10:00 Pulse Rate 71 11/29/18 10:00 Respiratory Rate 18 11/29/18 10:00 Blood Pressure 130/66 11/29/18 10:00 O2 Sat by Pulse Oximetry (%) 94 L 11/28/18 23:00 CC: Low back & sacral pain; no BM x 3 days ```````````````````````````` skin--no rashes head--NC heart--RR lungs--clear abd--soft; BS present; mild LLQ tenderness, no rebound back--sacral tenderness on palpation neuro--alert; coherent, no focal deficits `````````````````````````````````` summ > LLQ pain--non "surgical" exam; discomfort seems less today, and less tender. Still has not had a BM. Even though abd CT is negative, a mild local divertic still cannot be fully r/o. PLAN: cont Unasyn for now, and called for GI eval > Constip--Rx Colace & Miralax; has not needed Dilaudid > Lumbosacral pain--chronic in nature; CT of T & LSS showed multilevel degen changes and Lumbar levels to suggest nerve impingement, but she does not have any pains or numbness traveling down the legs. PLAN: PT eval > Htn--BP okay so far w/o meds > Hypothyroid--TSH in range ~~~~~~~~~~~~~~~~~~~~~~~~~ dr Presley Problem List - Problems (1) Abdominal pain Code(s): R10.9 - UNSPECIFIED ABDOMINAL PAIN Qualifiers: Abdominal location: left lower quadrant Qualified Code(s): R10.32 - Left lower quadrant pain (2) Lipidemia Code(s): E78.5 - HYPERLIPIDEMIA, UNSPECIFIED Qualifiers: Hyperlipidemia type: unspecified Qualified Code(s): E78.5 - Hyperlipidemia , unspecified (3) Hypothyroid Code(s): E03.9 - HYPOTHYROIDISM, UNSPECIFIED Qualifiers: Hypothyroidism type: unspecified Qualified Code(s): E03.9 - Hypothyroidism , unspecified (4) Hypertension Code(s): I10 - ESSENTIAL (PRIMARY) HYPERTENSION Qualifiers: Hypertension type: other secondary hypertension Qualified Code(s): I15.8 - Other secondary hypertension (5) Low back pain potentially associated with radiculopathy Code(s): M54.5 - LOW BACK PAIN
--- NOTE | 2018-11-29 13:34 | CON.GI ---
Consult Consult Specialty:: GI Referred by:: Dr. 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 She had a similar episode in 10/04. CT scan at that time revealed right ssided diverticula , questionable thickening of the TI at the level of the IC valve, sigmoid underdistention cannot r/o thickening. Non contrast CT scan of the A/P performed this admission failed to reveal any acute pathology. She was placed on unasyn. Pain has resolved. her daughter in law was present at bedside. She says that Mr. Holland complains of burning head pain frequently. It is uncertain if she has ever had a colonoscopy. it appears as though she was scheduled to have one with Dr. Armando in 2015 but in review of the [employer] system, it does not appear to have been performed. She denies nausea, vomiting , rectal bleeding. She describes having a large bowel movement prior to admission and otherwise denies change in bowel habits. She has a niece with a history of colon cancer. - History Source History Provided By: Patient, Family Member, Medical Record - Past Medical History Cardio/Vascular: Yes: HTN, Hyperlipdemia, Murmur Gastrointestinal: Yes: Other (recurrent abd pains much like she is having now) Renal/: Yes: Renal Inusuff, UTI ...: No Musculoskeletal: Yes: Chronic low back pain (with possible Lt radiculopathy) Endocrine: Yes: Hypothyroidism - Past Surgical History Past Surgical History: Yes: Cholecystectomy (Laparoscopic) - Alcohol/Substance Use Hx Alcohol Use: No History of Substance Use: reports: None - Smoking History Smoking history: Never smoked Have you smoked in the past 12 months: No - Social History ADL: Family Assistance Occupation: retired Place of : Other ([employer]) History of Recent Travel: No Home Medications - Allergies Allergies/Adverse Reactions: Allergies Allergy/AdvReac Type Severity Reaction Status Date / Time No Known Allergies Allergy Verified 11/28/18 04:35 - Home Medications Home Medications: Ambulatory Orders Atorvastatin Ca [Lipitor] 10 mg PO HS 09/13/17 Levothyroxine Sodium [Levoxyl] 50 mcg PO DAILY 09/13/17 Lisinopril [Prinivil] 20 mg PO BID 09/25/18 Hydrocodone/Acetaminophen [Hydrocodone-Acetamin 5-325 mg] 1 tablet PO Q6H PRN Amoxicillin/Potassium Clav [Augmentin 875-125 Tablet] 1 each PO BID #14 tablet 11/28/18 Hydrochlorothiazide [Hctz -] 12.5 mg PO DAILY 11/28/18 Family Disease History - Family Disease History Family Disease History: Other: Son (2, healthy) Other Family History: Niece with colon cancer. No other family history of GI malignancy Review of Systems - Review of Systems Constitutional: denies: Chills, Fever, Unintentional Wgt. Loss Cardiovascular: denies: Chest Pain Respiratory: denies: Cough, SOB Gastrointestinal: reports: Abdominal Pain. denies: Bloating, Constipation, Diarrhea, Dysphagia, Nausea, Rectal Bleeding, Vomiting Physical Exam-GI Vital Signs: Vital Signs Temperature 98.6 F 11/29/18 10:00 Pulse Rate 71 11/29/18 10:00 Respiratory Rate 18 11/29/18 10:00 Blood Pressure 130/66 11/29/18 10:00 O2 Sat by Pulse Oximetry (%) 94 L 11/28/18 23:00 Constitutional: Yes: Calm Eyes: No: Sclera Icterus Cardiovascular: Yes: Regular Rate and Rhythm. No: Murmur Respiratory: Yes: CTA Bilaterally Gastrointestinal Inspection: Yes: Scars (faint healed upper abdominal trochar scars). No: Distention ...Auscultate: Yes: Normoactive Bowel Sounds ...Palpate: Yes: Soft. No: Hepatomegaly, Splenomegaly, Tenderness ...Percussion: No: Tympanitic ...Rectal Exam: Yes: Other (No external lesions, no masses, formed light brown stool in the rectal vault, guaiac negative) Edema: No (No LE edema) Neurological: Yes: Alert Labs: CBC, BMP 11/29/18 06:00 11/29/18 06:00 Imaging - Results Cat Scan: Report Reviewed, Image Reviewed Problem List - Problems (1) Abdominal pain Assessment/Plan: Asymptomatic currently and no focal findings on my exam. Has been on Abx therapy. The ER evaluation reported LLQ pain and guarding on exam. ? if mild diverticulitis that was not noted on CT scan. Advise: Would treat as if mild diverticulitis as she seems to have responded to Abx therapy and has diverticula noted on CT scan: was on unsyn. Can change to augmentin. Would treat for total of 10 days including days on IV Abx while admitted. Advance diet Explained to patient and her daughter in law that she should follow-up in office and colonoscopy can be arranges in 6-8 weeks. Code(s): R10.9 - UNSPECIFIED ABDOMINAL PAIN Qualifiers: Abdominal location: left lower quadrant Qualified Code(s): R10.32 - Left lower quadrant pain
--- NOTE | 2018-11-29 13:54 | CONSULT ---
Consult Consult Specialty:: General Surgery Reason for Consultation:: LLQ ABD pain - History of Present Illness Chief Complaint: None offered at this time as pain resolved History of Present Illness: Called to michael 83yo female w/ PMHx as noted below. Comes to [facility] ED w/ c/o LLQ abd pain. GI consult note appreciated. Daughter at bedside. Patient resting comfortably at this time without complaint. Since admit to hospital, she had a mild leukocytosis which has resolved since starting Unasyn in ED Patient had a similar episode 09/25/2018 which she was admitted to [facility]. She had an ABD CT scan which identified right sided diverticula, ? thickening of the TI at the level of the IC valve, sigmoid under-distention cannot r/o thickening. During this admission she had a non-contrast CT scan of her ABD and no acute pathology was identified. Tolerating clear liquid diet. Voiding/stooling spontaneously. Denies n/v/f/c, CP, palpitations, SOB, ACEVEDO. Denies rectal bleeding or change in her bowel habits. 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 No: Crohn's Disease, Gastritis, GERD, GI Bleed, Irritable Bowel Disease, Ulcerative Colitis Renal/: Yes: Renal Inusuff, UTI ...: No Musculoskeletal: Yes: Chronic low back pain (with possible Lt radiculopathy) Endocrine: Yes: Hypothyroidism - Past Surgical History Past Surgical History: Yes: Cholecystectomy (Laparoscopic (7 years ago)) - Alcohol/Substance Use Hx Alcohol Use: No History of Substance Use: reports: None - Smoking History Smoking history: Never smoked Have you smoked in the past 12 months: No - Social History ADL: Family Assistance Occupation: retired History of Recent Travel: No Home Medications - Allergies Allergies/Adverse Reactions: Allergies Allergy/AdvReac Type Severity Reaction Status Date / Time No Known Allergies Allergy Verified 11/28/18 04:35 - Home Medications Home Medications: Ambulatory Orders Atorvastatin Ca [Lipitor] 10 mg PO HS 09/13/17 Levothyroxine Sodium [Levoxyl] 50 mcg PO DAILY 09/13/17 Lisinopril [Prinivil] 20 mg PO BID 09/25/18 Hydrocodone/Acetaminophen [Hydrocodone-Acetamin 5-325 mg] 1 tablet PO Q6H PRN Amoxicillin/Potassium Clav [Augmentin 875-125 Tablet] 1 each PO BID #14 tablet 11/28/18 Hydrochlorothiazide [Hctz -] 12.5 mg PO DAILY 11/28/18 Family Disease History - Family Disease History Family Disease History: Other: Son (2, healthy) Other Family History: Niece with colon cancer. No other family history of GI malignancy Review of Systems - Review of Systems Constitutional: reports: No Symptoms Eyes: reports: No Symptoms HENT: reports: No Symptoms Neck: reports: No Symptoms Cardiovascular: reports: No Symptoms Respiratory: reports: No Symptoms Gastrointestinal: reports: No Symptoms Genitourinary: reports: No Symptoms Breasts: reports: No Symptoms Reported Musculoskeletal: reports: No Symptoms Integumentary: reports: No Symptoms Neurological: reports: No Symptoms Endocrine: reports: No Symptoms Hematology/Lymphatic: reports: No Symptoms Psychiatric: reports: No Symptoms Physical Exam Vital Signs: Vital Signs Temperature 98.6 F 11/29/18 10:00 Pulse Rate 71 11/29/18 10:00 Respiratory Rate 18 11/29/18 10:00 Blood Pressure 130/66 11/29/18 10:00 O2 Sat by Pulse Oximetry (%) 94 L 11/28/18 23:00 Constitutional: Yes: Well Nourished, No Distress, Calm Eyes: Yes: WNL, Conjunctiva Clear, EOM Intact HENT: Yes: WNL, Atraumatic, Normocephalic Neck: Yes: WNL, Supple, Trachea Midline Cardiovascular: Yes: WNL, Regular Rate and Rhythm Respiratory: Yes: WNL, CTA Bilaterally Gastrointestinal: Yes: Normal Bowel Sounds, Soft. No: Hernia, Palpable Mass, Pulsatile Mass, Rectal Bleeding, Tenderness, Tenderness, Rebound, Vomiting ...Rectal Exam: Yes: WNL, Sphincter Tone Normal. No: Guaiac Negative, Hemorrhoids/External Renal/: Yes: WNL Musculoskeletal: Yes: WNL Extremities: Yes: WNL Edema: No Peripheral Pulses WNL: Yes Neurological: Yes: WNL, Alert, Oriented ...Motor Strength: WNL Psychiatric: Yes: WNL, Alert, Oriented Labs: CBC, BMP 11/29/18 06:00 11/29/18 06:00 Imaging - Results Chest X-ray: Report Reviewed, Image Reviewed Cat Scan: Report Reviewed, Image Reviewed Problem List - Problems (1) Abdominal pain Code(s): R10.9 - UNSPECIFIED ABDOMINAL PAIN Qualifiers: Abdominal location: left lower quadrant Qualified Code(s): R10.32 - Left lower quadrant pain (2) Diverticula of colon Code(s): K57.30 - DVRTCLOS OF LG INT W/O PERFORATION OR ABSCESS W/O BLEEDING Assessment/Plan 83yo female admitted with LLQ abd pain. Similar complaints when compared to previous admissions. ABD CT scan without any acute pathology. Mild leukocytosis which has resolved s/p IV Unasyn. Currently, asymptomatic on physical exam. She tolerated clear liquid diet last night. She is voiding and stooling without difficulty. Agree with GI note with regards to treating as a mild case of diverticulitis given her last CT scan of 09/25/18 which identified right diverticula. Augmentin PO BID x10 days per GI note Advance diet as tolerated OOB and ambulate GI for out-patient colonoscopy in 6-8 weeks. No surgical intervention warranted. Continue medical management Above plan discussed with my attending and agrees. On behalf of Dr. Chavarria, thank you for the opportunity to participate in your patient's care. Visit type - Emergency Visit Emergency Visit: Yes ED Registration Date: 11/28/18 Care time: The patient presented to the Emergency Department on the above date and was hospitalized for further evaluation of their emergent condition. - New Patient This patient is new to me today: Yes Date on this admission: 11/29/18 - Critical Care Critical Care patient: No
[2018-11-29] MEDS ORDERED: PT OWN MED DRAWER 7, Y5N ONE (17:37)
[2018-11-29] MEDS: DEXTROSE 5%-0.45% SALINE 1,000 ML IV SCH (17:49)
[2018-11-29] MEDS ORDERED: ACETAMINOPHEN 325 MG TABLET (FP) PO ONE (22:13)
[2018-11-29] MEDS: DOCUSATE SODIUM 100 MG CAPSULE (FP) PO SCH (22:22)
[2018-11-30] MEDS ORDERED: PT OWN MED DRAWER 7, Y5N ONE ×3 (01:16→18:32)
[2018-11-30] MEDS: AMPICILLIN NA/SULBACTAM NA 1.5 GM in SODIUM CHLORIDE 100 ML IVPB SCH ×3 (01:28→18:49)
--- NOTE | 2018-11-30 06:13 | CONSULT ---
Consult - text type - Consultation Consultation Note: 83 yr old female known to me in the past with history of diverticular disease presenting with constipation and LLQ pain Exam benign with minimal tenderness. WBC 9 Mild recurrent diverticulitis No need for intervention PO cipro and flagyl Advance diet and d/c as per medicine
[2018-11-30] MEDS: LEVOTHYROXINE NA 50 MCG TABLET (FP) PO SCH (06:24)
[2018-11-30 06:56] LABS: HEMATOCRIT 34.7 % (32.4-45.2); HEMOGLOBIN 11.7 GM/dL (10.7-15.3); MCH 30.4 pg (25.7-33.7); MCHC 33.8 g/dl (32.0-36.0); MEAN CELL VOLUME 90.2 fl (80-96); MEAN PLT VOLUME 9.2 fl (7.5-11.1); PLATELET COUNT 185 K/MM3 (134-434); RBC 3.85 M/mm3 (3.60-5.2); RDW 13.8 % (11.6-15.6); WHITE BLOOD COUNT 4.6 K/mm3 (4.0-10.0)
[2018-11-30 07:20] LABS: ANION GAP 4 MMOL/L (8-16); BLOOD UREA NITROGEN 16 mg/dL (7-18); CALCIUM 8.6 mg/dL (8.5-10.1); CHLORIDE 110 mmol/L (98-107); CO2 30 mmol/L (21-32); CREATININE 1.1 mg/dL (0.55-1.3); GLUCOSE,RANDOM 93 mg/dL (74-106); POTASSIUM 4.6 mmol/L (3.5-5.1); SODIUM 143 mmol/L (136-145)
[2018-11-30] MEDS ORDERED: POLYETHYLENE GLYCOL 3350 119 GM BTL PO SCH (10:00)
[2018-11-30] MEDS: ENOXAPARIN NA (PORCINE) 40 MG/0.4 ML DISP.SYRIN SQ SCH (10:43)
[2018-11-30] MEDS: DOCUSATE SODIUM 100 MG CAPSULE (FP) PO SCH ×3 (10:43→22:37)
[2018-11-30] MEDS ORDERED: MINERAL OIL ENEMA 133 ML ENEMA PR ONE (15:40)
--- NOTE | 2018-11-30 16:23 | PN ---
Progress Note (short form) - Note Progress Note: medical Current Medications Docusate Sodium (Colace -) 100 mg PO BID [facility] Last Admin: 11/30/18 10:43 Dose: 100 mg Enoxaparin Sodium (Lovenox -) 40 mg SQ DAILY [facility] Last Admin: 11/30/18 10:43 Dose: 40 mg Hydromorphone HCl (Dilaudid Vial -) 1 mg IVPUSH Q6H PRN PRN Reason: PAIN LEVEL 6-10 Ampicillin Sodium/Sulbactam (Sodium 1.5 gm/ Sodium Chloride) 100 mls @ 200 mls/ hr IVPB Q8H-IV [facility] Last Admin: 11/30/18 10:43 Dose: 200 mls/hr Dextrose/Sodium Chloride (D5-1/2ns -) 1,000 mls @ 42 mls/hr IV ASDIR [facility] Last Admin: 11/29/18 17:49 Dose: 42 mls/hr Levothyroxine Sodium (Synthroid -) 50 mcg PO DAILY@0700 [facility] Last Admin: 11/30/18 06:24 Dose: 50 mcg Polyethylene Glycol (Miralax (For Daily Use) -) 17 gm PO DAILY [facility] Last Admin: 11/30/18 10:42 Dose: 17 gm Laboratory Results - last 24 hr 11/30/18 11/30/18 06:00 06:00 WBC 4.6 RBC 3.85 Hgb 11.7 Hct 34.7 MCV 90.2 MCH 30.4 MCHC 33.8 RDW 13.8 Plt Count 185 MPV 9.2 Sodium 143 Potassium 4.6 Chloride 110 H Carbon Dioxide 30 Anion Gap 4 L BUN 16 Creatinine 1.1 Creat Clearance w eGFR 47.67 Random Glucose 93 Calcium 8.6 Vital Signs Temperature 97.6 F 11/30/18 14:45 Pulse Rate 74 11/30/18 14:45 Respiratory Rate 24 H 11/30/18 14:45 Blood Pressure 165/101 H 11/30/18 14:45 O2 Sat by Pulse Oximetry (%) 96 11/29/18 21:00 CC: no BM yet ```````````````````````````` skin--no rashes head--NC heart--RR lungs--clear abd--soft; BS present; mild LLQ tenderness, no rebound neuro--alert; coherent, no focal deficits `````````````````````````````````` summ > LLQ pain--non "surgical" exam; discomfort seems less, seems to have responded to IV Abs. Still has not had a BM. Even though abd CT is negative, a mild local divertic still possible. PLAN: cont Unasyn for now. GI & Surg note read > Constip--Rx Colace & Miralax; will up dose > Lumbosacral pain--chronic in nature; CT of T & LSS showed multilevel degen changes and Lumbar levels to suggest nerve impingement, but she does not have any pains or numbness traveling down the legs. PLAN: PT eval > Htn--BP now high; up dose of BP med > Hypothyroid--TSH in range ~~~~~~~~~~~~~~~~~~~~~~~~~ dr Presley Problem List - Problems (1) Abdominal pain Code(s): R10.9 - UNSPECIFIED ABDOMINAL PAIN Qualifiers: Abdominal location: left lower quadrant Qualified Code(s): R10.32 - Left lower quadrant pain (2) Lipidemia Code(s): E78.5 - HYPERLIPIDEMIA, UNSPECIFIED Qualifiers: Hyperlipidemia type: unspecified Qualified Code(s): E78.5 - Hyperlipidemia , unspecified (3) Hypothyroid Code(s): E03.9 - HYPOTHYROIDISM, UNSPECIFIED Qualifiers: Hypothyroidism type: unspecified Qualified Code(s): E03.9 - Hypothyroidism , unspecified (4) Hypertension Code(s): I10 - ESSENTIAL (PRIMARY) HYPERTENSION Qualifiers: Hypertension type: other secondary hypertension Qualified Code(s): I15.8 - Other secondary hypertension (5) Low back pain potentially associated with radiculopathy Code(s): M54.5 - LOW BACK PAIN
--- NOTE | 2018-11-30 17:06 | PN.GI ---
GI Progress Note Subjective: Pt seen/examined at bedside, feeling better, sitting in chair, denies abdominal pain, n/v, passing flatus, no bm yet. Tolerating regular diet. - Objective Vital Signs: Vital Signs Temperature 97.6 F 11/30/18 14:45 Pulse Rate 74 11/30/18 14:45 Respiratory Rate 24 H 11/30/18 14:45 Blood Pressure 165/101 H 11/30/18 14:45 O2 Sat by Pulse Oximetry (%) 96 11/29/18 21:00 Constitutional: Well Nourished, No Distress, Calm Cardiovascular: Yes: WNL, Regular Rate and Rhythm Respiratory: Yes: WNL, Regular, CTA Bilaterally Gastrointestinal Inspection: Yes: WNL ...Auscultate: Yes: Normoactive Bowel Sounds ...Palpate: Yes: Other (Abd soft, nt, nd) Labs: CBC, BMP 11/30/18 06:00 11/30/18 06:00 Problem List - Problems (1) Abdominal pain Assessment/Plan: 83 yo female h/o diverticulosis presenting with abdominal pain with possible mild uncomplicated diverticulitis (CT scan limited without contrast). Clinically improved on antibiotics. Afebrile, leucocytosis resolved. -Diet as tolerated, advised high fiber -Continue miralax daily -Agree with change to augmentin upon discharge to complete 10 day course -Pt will require outpt GI follow up and colonoscopy in 6-8 weeks Code(s): R10.9 - UNSPECIFIED ABDOMINAL PAIN Qualifiers: Abdominal location: left lower quadrant Qualified Code(s): R10.32 - Left lower quadrant pain
[2018-11-30] MEDS ORDERED: LISINOPRIL 5 MG TABLET (FP) PO SCH (18:00)
[2018-11-30] MEDS ORDERED: ACETAMINOPHEN 325 MG TABLET (FP) PO ONE ×2 (18:00→20:45)
[2018-11-30] MEDS: POLYETHYLENE GLYCOL 3350 119 GM BTL PO SCH (22:36)
[2018-11-30] MEDS: LISINOPRIL 5 MG TABLET (FP) PO SCH (22:43)
[2018-12-01] MEDS ORDERED: PT OWN MED DRAWER 7, Y5N ONE ×3 (01:04→17:16)
[2018-12-01] MEDS: AMPICILLIN NA/SULBACTAM NA 1.5 GM in SODIUM CHLORIDE 100 ML IVPB SCH ×3 (01:37→18:01)
[2018-12-01] MEDS: DOCUSATE SODIUM 100 MG CAPSULE (FP) PO SCH ×3 (06:30→21:52)
[2018-12-01] MEDS: LEVOTHYROXINE NA 50 MCG TABLET (FP) PO SCH (06:30)
[2018-12-01] MEDS ORDERED: MINERAL OIL ENEMA 133 ML ENEMA PR ONE (10:04)
[2018-12-01] MEDS: ENOXAPARIN NA (PORCINE) 40 MG/0.4 ML DISP.SYRIN SQ SCH (10:10)
[2018-12-01] MEDS: LISINOPRIL 5 MG TABLET (FP) PO SCH ×2 (10:10→21:52)
[2018-12-01] MEDS: POLYETHYLENE GLYCOL 3350 119 GM BTL PO SCH (10:57)
[2018-12-01] MEDS ORDERED: MAGNESIUM CITRATE 300 ML BOTTLE PO ONE (13:35)
--- NOTE | 2018-12-01 13:46 | PN ---
Progress Note (short form) - Note Progress Note: medical Current Medications Docusate Sodium (Colace -) 100 mg PO TID [facility] Last Admin: 12/01/18 06:30 Dose: 100 mg Enoxaparin Sodium (Lovenox -) 40 mg SQ DAILY [facility] Last Admin: 12/01/18 10:10 Dose: 40 mg Gabapentin (Neurontin -) 100 mg PO TID [facility] Ampicillin Sodium/Sulbactam (Sodium 1.5 gm/ Sodium Chloride) 100 mls @ 200 mls/ hr IVPB Q8H-IV [facility] Last Admin: 12/01/18 10:56 Dose: 200 mls/hr Levothyroxine Sodium (Synthroid -) 50 mcg PO DAILY@0700 [facility] Last Admin: 12/01/18 06:30 Dose: 50 mcg Lisinopril (Prinivil) 5 mg PO BID [facility] Last Admin: 12/01/18 10:10 Dose: 5 mg Polyethylene Glycol (Miralax (For Daily Use) -) 17 gm PO BID [facility] Last Admin: 12/01/18 10:57 Dose: 17 grams Vital Signs Temperature 97.9 F 12/01/18 10:04 Pulse Rate 77 12/01/18 10:04 Respiratory Rate 20 12/01/18 10:04 Blood Pressure 152/90 12/01/18 10:04 O2 Sat by Pulse Oximetry (%) 96 11/30/18 21:00 CC: no BM yet; c/o heat/burning stinging sensation on both feet & head ```````````````````````````` skin--no rashes head--NC heart--RR lungs--clear abd--soft; mild LLQ tenderness, no rebound; rectal done w/ nurse present; little stool in rectum, brown neuro--alert; coherent, no focal deficits `````````````````````````````````` summ > LLQ pain--focal diverticulitis; discomfort seems less, seems to have responded to IV Abs. Still has not had a BM with dual laxatives: Cont IV Abs for today; cont reg diet > Constip--Rx Colace & Miralax; check KUB > Lumbosacral pain--chronic in nature; CT of T & LSS showed multilevel degen changes and Lumbar levels to suggest nerve impingement, but she does not have any pains or numbness traveling down the legs. PLAN: PT eval > Htn--BP fluctuates; on BID lisinopril > Hypothyroid--TSH in range > Abnormal sensations--affecting limbs; mainly heat/burning. PLAN: trial of Gabapentin ~~~~~~~~~~~~~~~~~~~~~~~~~ dr Presley Problem List - Problems (1) Abdominal pain Code(s): R10.9 - UNSPECIFIED ABDOMINAL PAIN Qualifiers: Abdominal location: left lower quadrant Qualified Code(s): R10.32 - Left lower quadrant pain (2) Lipidemia Code(s): E78.5 - HYPERLIPIDEMIA, UNSPECIFIED Qualifiers: Hyperlipidemia type: unspecified Qualified Code(s): E78.5 - Hyperlipidemia , unspecified (3) Hypothyroid Code(s): E03.9 - HYPOTHYROIDISM, UNSPECIFIED Qualifiers: Hypothyroidism type: unspecified Qualified Code(s): E03.9 - Hypothyroidism , unspecified (4) Hypertension Code(s): I10 - ESSENTIAL (PRIMARY) HYPERTENSION Qualifiers: Hypertension type: other secondary hypertension Qualified Code(s): I15.8 - Other secondary hypertension (5) Low back pain potentially associated with radiculopathy Code(s): M54.5 - LOW BACK PAIN
--- NOTE | 2018-12-01 13:59 | PN.GI ---
GI Progress Note Subjective: No abdominal pain No BM as of yet Tolerating PO - Objective Vital Signs: Vital Signs Temperature 97.9 F 12/01/18 10:04 Pulse Rate 77 12/01/18 10:04 Respiratory Rate 20 12/01/18 10:04 Blood Pressure 152/90 12/01/18 10:04 O2 Sat by Pulse Oximetry (%) 96 11/30/18 21:00 Constitutional: Calm Eyes: No: Sclera Icterus Cardiovascular: Yes: Regular Rate and Rhythm Respiratory: No: CTA Bilaterally Gastrointestinal Inspection: No: Distention ...Auscultate: Yes: Normoactive Bowel Sounds ...Palpate: Yes: Soft. No: Tenderness Neurological: Yes: Alert Labs: CBC, BMP 11/30/18 06:00 11/30/18 06:00 Hepatic Panel Total Bilirubin 0.6 mg/dL (0.2-1) 11/28/18 05:40 AST 30 U/L (15-37) 11/28/18 05:40 ALT 20 U/L (13-61) 11/28/18 05:40 Alkaline Phosphatase 91 U/L (45-117) 11/28/18 05:40 Albumin 3.6 g/dl (3.4-5.0) 11/28/18 05:40 Problem List - Problems (1) Abdominal pain Assessment/Plan: Resolved. Treating as mild diverticulitis FUA to assess for fecal retention Continue MiraLAX 17g PO BID for now Code(s): R10.9 - UNSPECIFIED ABDOMINAL PAIN Qualifiers: Abdominal location: left lower quadrant Qualified Code(s): R10.32 - Left lower quadrant pain
[2018-12-01] MEDS: GABAPENTIN 100 MG CAPSULE (FP) PO SCH ×2 (14:46→21:52)
--- NOTE | 2018-12-01 21:28 | PN ---
Progress Note (short form) - Note Progress Note: Addendum: spoke to PCP (Dr Prescott) today regarding matter of constipation, and he informed me that she has responded well to Lactulose, as other laxatives now being used have not been effective with her in the past. Problem List - Problems (1) Abdominal pain Code(s): R10.9 - UNSPECIFIED ABDOMINAL PAIN Qualifiers: Abdominal location: left lower quadrant Qualified Code(s): R10.32 - Left lower quadrant pain (2) Lipidemia Code(s): E78.5 - HYPERLIPIDEMIA, UNSPECIFIED Qualifiers: Hyperlipidemia type: unspecified Qualified Code(s): E78.5 - Hyperlipidemia , unspecified (3) Hypothyroid Code(s): E03.9 - HYPOTHYROIDISM, UNSPECIFIED Qualifiers: Hypothyroidism type: unspecified Qualified Code(s): E03.9 - Hypothyroidism , unspecified (4) Hypertension Code(s): I10 - ESSENTIAL (PRIMARY) HYPERTENSION Qualifiers: Hypertension type: other secondary hypertension Qualified Code(s): I15.8 - Other secondary hypertension (5) Low back pain potentially associated with radiculopathy Code(s): M54.5 - LOW BACK PAIN
[2018-12-01] MEDS: LACTULOSE 20 GM/30 ML UDC (FOR ORAL USE ONLY) PO SCH (21:52)
[2018-12-02] MEDS: AMPICILLIN NA/SULBACTAM NA 1.5 GM in SODIUM CHLORIDE 100 ML IVPB SCH ×3 (01:52→18:27)
[2018-12-02] MEDS: LEVOTHYROXINE NA 50 MCG TABLET (FP) PO SCH (06:33)
[2018-12-02] MEDS: DOCUSATE SODIUM 100 MG CAPSULE (FP) PO SCH ×3 (06:33→23:02)
[2018-12-02] MEDS: GABAPENTIN 100 MG CAPSULE (FP) PO SCH ×3 (06:33→23:02)
[2018-12-02] MEDS ORDERED: PT OWN MED DRAWER 7, Y5N ONE ×2 (10:09→17:41)
[2018-12-02] MEDS: LACTULOSE 20 GM/30 ML UDC (FOR ORAL USE ONLY) PO SCH ×5 (10:29→23:02)
[2018-12-02] MEDS: LISINOPRIL 5 MG TABLET (FP) PO SCH ×2 (10:29→23:02)
[2018-12-02] MEDS: ENOXAPARIN NA (PORCINE) 40 MG/0.4 ML DISP.SYRIN SQ SCH (10:30)
--- NOTE | 2018-12-02 13:52 | PN.GI ---
GI Progress Note Subjective: No BM Bowel regimen changed by Dr. Presley as he discussed prior outpatient regimens with Dr. Prescott She refused mineral oil enema last night and does not want another one - Objective Vital Signs: Vital Signs Temperature 98.2 F 12/02/18 10:28 Pulse Rate 80 12/02/18 10:28 Respiratory Rate 20 12/02/18 10:28 Blood Pressure 137/81 12/02/18 10:28 O2 Sat by Pulse Oximetry (%) 97 12/01/18 21:00 Constitutional: Calm Cardiovascular: Yes: Regular Rate and Rhythm Respiratory: Yes: CTA Bilaterally Gastrointestinal Inspection: No: Distention ...Auscultate: Yes: Normoactive Bowel Sounds ...Palpate: Yes: Soft. No: Tenderness Neurological: Yes: Alert Labs: CBC, BMP 11/30/18 06:00 11/30/18 06:00 Problem List - Problems (1) Abdominal pain Assessment/Plan: Resolved Benign abdominal exam Treating as a possible mild diverticulosis with recommendations as outlined in iinitial consult. Outpatient follow-up to discuss colonoscopy Code(s): R10.9 - UNSPECIFIED ABDOMINAL PAIN Qualifiers: Abdominal location: left lower quadrant Qualified Code(s): R10.32 - Left lower quadrant pain (2) Constipation Assessment/Plan: Bowel regimen has changed Monitor for response Monitor abdominal exam Code(s): K59.00 - CONSTIPATION, UNSPECIFIED
--- NOTE | 2018-12-02 14:35 | PN ---
Progress Note (short form) - Note Progress Note: @@@@@@@@@@@@@@@@ MEDICAL @@@@@@@@@@@@@@@ Current Medications Docusate Sodium (Colace -) 100 mg PO TID [facility] Last Admin: 12/02/18 06:33 Dose: 100 mg Enoxaparin Sodium (Lovenox -) 40 mg SQ DAILY [facility] Last Admin: 12/02/18 10:30 Dose: 40 mg Gabapentin (Neurontin -) 100 mg PO TID [facility] Last Admin: 12/02/18 06:33 Dose: 100 mg Ampicillin Sodium/Sulbactam (Sodium 1.5 gm/ Sodium Chloride) 100 mls @ 200 mls/ hr IVPB Q8H-IV [facility] Last Admin: 12/02/18 10:29 Dose: 200 mls/hr Lactulose (Cephulac (Oral Use)) 20 gm PO QID [facility] Last Admin: 12/02/18 10:29 Dose: 20 gm Levothyroxine Sodium (Synthroid -) 50 mcg PO DAILY@0700 [facility] Last Admin: 12/02/18 06:33 Dose: 50 mcg Lisinopril (Prinivil) 5 mg PO BID [facility] Last Admin: 12/02/18 10:29 Dose: 5 mg Vital Signs Temperature 98.5 F 12/02/18 13:44 Pulse Rate 71 12/02/18 13:44 Respiratory Rate 16 12/02/18 13:44 Blood Pressure 135/78 12/02/18 13:44 O2 Sat by Pulse Oximetry (%) 98 12/02/18 10:30 CC: no BM yet; c/o abd bloat ```````````````````````````` skin--no rashes head--NC heart--RR lungs--clear abd--soft; trace LLQ tenderness, no rebound; (+) distention but good BS neuro--alert; coherent, no focal deficits `````````````````````````````````` summ > LLQ pain--focal diverticulitis; has improved clinically. Still has not had a BM with dual laxatives: Cont IV Abs for today; cont reg diet > Constip--Rx Colace & Lactulose (QID); as did not respond to Miralax BID & enemas. Abd film shows copious stool build up; if no response from Lactulose & colace after 24 Hrs will then Rx Golytely > Lumbosacral pain--chronic in nature; CT of T & LSS showed multilevel degen changes and Lumbar levels to suggest nerve impingement, but she does not have any pains or numbness traveling down the legs. PLAN: on Gabapentin > Htn--BP a bit better on BID lisinopril > Hypothyroid--TSH in range > Abnormal sensations--affecting limbs; mainly heat/burning. PLAN: trial of Gabapentin ~~~~~~~~~~~~~~~~~~~~~~~~~ dr Presley Problem List - Problems (1) Abdominal pain Code(s): R10.9 - UNSPECIFIED ABDOMINAL PAIN Qualifiers: Abdominal location: left lower quadrant Qualified Code(s): R10.32 - Left lower quadrant pain (2) Lipidemia Code(s): E78.5 - HYPERLIPIDEMIA, UNSPECIFIED Qualifiers: Hyperlipidemia type: unspecified Qualified Code(s): E78.5 - Hyperlipidemia , unspecified (3) Hypothyroid Code(s): E03.9 - HYPOTHYROIDISM, UNSPECIFIED Qualifiers: Hypothyroidism type: unspecified Qualified Code(s): E03.9 - Hypothyroidism , unspecified (4) Hypertension Code(s): I10 - ESSENTIAL (PRIMARY) HYPERTENSION Qualifiers: Hypertension type: other secondary hypertension Qualified Code(s): I15.8 - Other secondary hypertension (5) Low back pain potentially associated with radiculopathy Code(s): M54.5 - LOW BACK PAIN
[2018-12-03] MEDS ORDERED: PT OWN MED DRAWER 7, Y5N ONE ×2 (00:19→10:19)
[2018-12-03] MEDS: AMPICILLIN NA/SULBACTAM NA 1.5 GM in SODIUM CHLORIDE 100 ML IVPB SCH ×2 (01:42→10:14)
[2018-12-03] MEDS: DOCUSATE SODIUM 100 MG CAPSULE (FP) PO SCH ×2 (06:15→13:24)
[2018-12-03] MEDS: LEVOTHYROXINE NA 50 MCG TABLET (FP) PO SCH (06:15)
[2018-12-03] MEDS: GABAPENTIN 100 MG CAPSULE (FP) PO SCH ×2 (06:15→13:25)
[2018-12-03 07:45] LABS: ANION GAP 8 MMOL/L (8-16); BLOOD UREA NITROGEN 13 mg/dL (7-18); CALCIUM 9.3 mg/dL (8.5-10.1); CHLORIDE 109 mmol/L (98-107); CO2 25 mmol/L (21-32); GLUCOSE,RANDOM 81 mg/dL (74-106); POTASSIUM 4.6 mmol/L (3.5-5.1); SODIUM 142 mmol/L (136-145)
[2018-12-03] MEDS: LISINOPRIL 5 MG TABLET (FP) PO SCH (10:12)
[2018-12-03] MEDS: ENOXAPARIN NA (PORCINE) 40 MG/0.4 ML DISP.SYRIN SQ SCH (10:15)
[2018-12-03] MEDS: LACTULOSE 20 GM/30 ML UDC (FOR ORAL USE ONLY) PO SCH ×2 (10:19→13:25)
--- NOTE | 2018-12-03 13:01 | DS ---
Physical Examination Vital Signs: Vital Signs Temperature 97.7 F 12/03/18 06:00 Pulse Rate 70 12/03/18 06:00 Respiratory Rate 18 12/03/18 06:00 Blood Pressure 134/76 12/03/18 06:00 O2 Sat by Pulse Oximetry (%) 98 12/02/18 21:00 Constitutional: Yes: Well Nourished, No Distress, Anxious Eyes: Yes: Conjunctiva Clear Neck: Yes: WNL Cardiovascular: Yes: Regular Rate and Rhythm Respiratory: Yes: WNL, Regular Gastrointestinal: Yes: Normal Bowel Sounds, Soft Extremities: Yes: WNL Edema: No Integumentary: Yes: WNL Neurological: Yes: WNL Psychiatric: Yes: WNL Labs: CBC, BMP 11/30/18 06:00 12/03/18 06:30 Discharge Summary Reason For Visit: ABDOMINAL PAIN Current Active Problems Abdominal pain (Acute) Constipation (Acute) Diverticula of colon (Acute) Low back pain potentially associated with radiculopathy (Acute) HTN Back pain OA spine Hospital Course: admitted for LLQ pain and shift to the left; exam showed exquisite tenderness; but no rebound; she was sen by GI and surgeon (past hx of appendicolith), but deemed not to be surg candidate. She was started on IV Abs and on soft diet, and her pains gradually diminished; however; she had difficulty having BMs and c /o general GI bloating; she finally rresponded to Lactulose (but not colace or Miralax). Her BP; Tem; menatation remained stable throughout her stay. She will cont on 4 days of PO Abs at home and family advised to f/u with PCP. Condition: Fair - Instructions Diet, Activity, Other Instructions: high fiber diet low sodium avoid getting constipated avoid use of Codeine/Vicodin pain killers Referrals: Thomas Prescott MD [Primary Care Provider] - Disposition: HOME - Home Medications Comprehensive Discharge Medication List: Ambulatory Orders Atorvastatin Ca [Lipitor] 10 mg PO HS 09/13/17 Levothyroxine Sodium [Levoxyl] 50 mcg PO DAILY 09/13/17 Lisinopril [Prinivil] 20 mg PO BID 09/25/18 Hydrochlorothiazide [Hctz -] 12.5 mg PO DAILY 11/28/18 Amoxicillin - [Amoxicillin 500mg Capsule -] 500 mg PO TID 4 Days #14 capsule Lactulose (Oral Use) [Cephulac -] 20 gm PO BID #60 udc 12/03/18
[2018-12-03 15:05] VITALS: BP 134/95; PULSE 72; TEMP 97.9
== END 2018-12-03 15:15 | disposition home or self-care (01) | DRG 392 ==
LOC: JER 03:41 → JERBED 09:16 → J5S 22:24
PROVIDERS: ADMIT Internal Medicine; ATTEND Internal Medicine
DX: K57.92 Diverticulitis of intestine, part unspecified, without perforation or abscess without bleeding (principal); E03.9 Hypothyroidism, unspecified; I10 Essential (primary) hypertension; M54.5 Low back pain; K59.00 Constipation, unspecified; D72.829 Elevated white blood cell count, unspecified; R10.32 Left lower quadrant pain; E78.5 Hyperlipidemia, unspecified
CPT/HCPCS: 36415; 71045-TC-FY; 72128-TC; 72131-TC; 74019-TC-FY; 74176-TC; 76856-TC; 80048; 80053; 81003; 82962; 83036; 83690; 84443; 85025; 85027; 87086; 99284-25

== ENCOUNTER 2019-07-01 13:15 | Emergency (ER) | payer OTHER ==
[2019-07-01 13:21] VITALS: TEMP 98.2
--- NOTE | 2019-07-01 14:28 | PDOC ---
History of Present Illness - General Chief Complaint: Headache Stated Complaint: HEADACHE Time Seen by Provider: 07/01/19 13:49 History Source: Patient Exam Limitations: No Limitations - History of Present Illness Initial Comments: 07/02/19 23:45 HPI: 83F PMH HTN, HLD, Hypothyroidism, chronic LBP presenting with 2 months of daily feeling of head warmth w/ associated lightheadedness. Sx have been unchanged. Sx improve over the course of the day and w/ ice. 2 weeks ago, pt was found to be confused at [facility] and had to be brought home. Now at baseline mental status / behavior. Denies blurry vision, diplopia, changes in hearing, numbness, tingling , weakness. Ambulates on her own w/o assistance at baseline. Denies weight loss , cp, palpitations, sob, n/v, abd pain, changes in appetite. Past History - Past Medical History Allergies/Adverse Reactions: Allergies Allergy/AdvReac Type Severity Reaction Status Date / Time No Known Allergies Allergy Verified 07/01/19 13:21 Home Medications: Ambulatory Orders Atorvastatin Ca [Lipitor] 10 mg PO HS 09/13/17 Levothyroxine Sodium [Levoxyl] 50 mcg PO DAILY 09/13/17 Lisinopril [Prinivil] 20 mg PO BID 09/25/18 Amoxicillin/Potassium Clav [Augmentin 875-125 Tablet] 1 each PO BID #14 tablet 11/28/18 Hydrochlorothiazide [Hctz -] 12.5 mg PO DAILY 11/28/18 Amoxicillin - [Amoxicillin 500mg Capsule -] 500 mg PO TID 4 Days #14 capsule Lactulose (Oral Use) [Cephulac -] 20 gm PO BID #60 udc 12/03/18 COPD: No Diabetes: Yes HTN: Yes Hypercholesterolemia: Yes Thyroid Disease: Yes - Immunization History TDAP Vaccination: Yes Immunization Up to Date: Yes - Psycho Social/Smoking Cessation Hx Smoking History: Never smoked Have you smoked in the past 12 months: No Hx Alcohol Use: No Drug/Substance Use Hx: No Substance Use Type: None Review of Systems - Review of Systems Able to Perform ROS?: Yes Comments:: 07/02/19 23:46 ROS: CONSTITUTIONAL: Denies F / C HEENT: Endorses warm feeling of head, lightheadedness w/ the warmth. Denies headache, dizziness, changes in hearing, diplopia, blurry vision. Denies sore throat, rhinorrhea. RESP: Denies SOB, cough CARD: Denies chest pain, palpitations GI: Denies N / V / D, abdominal pain, bloody stool, inability to tolerate PO : Denies dysuria, hematuria, frequency SKIN: Denies rashes NEURO: Denies numbness, tingling, weakness Is the patient limited Nepalese proficient: No *Physical Exam - Vital Signs Last Vital Signs Temp Pulse Resp BP Pulse Ox 98.2 F 89 18 128/89 98 07/01/19 13:17 07/01/19 13:17 07/01/19 13:17 07/01/19 13:17 07/01/19 13:17 - Physical Exam Comments: 07/02/19 23:46 PE: GEN: Well appearing, NAD, comfortable. AAOx3 HEENT: NC/AT, CN II-XII intact. EOMI, PERRLA. No facial asymmetry. Normal voice. Supple neck w/ FROM. No midline TTP of neck. BACK: no step offs, no midline TTP. CV: S1/S2, RRR, no m/r/g LUNG: CTAB, no wheezes, crackles, rales, rhonchi. GI: soft, ndnt, +BS, no guarding, no rebound. No masses. EXTREMITIES: 2+ distal pulses. No LE edema. No obvious deformities of all extremities. SKIN: warm, dry, normal turgor PSYCH: normal mood and affect NEURO: 5/5 strength UE and LE b/l. Symmetric sensation. No FTN or Heel-berg ataxia. neg rhomberg. neg pronator drift. Ambulates w/ normal gait. ED Treatment Course - LABORATORY CBC & Chemistry Diagram: 07/01/19 15:00 07/01/19 15:00 Medical Decision Making - Medical Decision Making 07/01/19 14:47 MDM: 83F w/ months of "head warmth" and recent episode of AMS Eval for intracranial process, electrolyte abnormalities, anemia - CBC, CMP, Card, TSH - EKG - CT head EKG 07/01/19 13:55 HR 69 NE 160 QRS 88 QTc 445 NSR 07/01/19 17:20 labs reviewed cardiac enzymes neg Discharge - Discharge Information Problems reviewed: Yes Clinical Impression/Diagnosis: Head pain, chronic Condition: Stable Disposition: HOME - Admission No - Follow up/Referral Referrals: Thomas Prescott MD [Primary Care Provider] - Gen Bronson MD [Staff Physician] - - Patient Discharge Instructions Additional Instructions: You were evaluated in the Emergency Department. A copy of your CT report was provided to you. We recommend following up with a neurologist for further work up of your symptoms. We are referring you to Dr. Bronson; please call and schedule an appointment for the next 7 days. Follow up with your primary care doctor regarding this ED visit in the next 7 days. IMMEDIATELY return to the nearest Emergency Deparment if you experience: - Worsening symptoms - confused, change in behavior, change in personality - severe headache, changes in vision, hearing, seizures, loss of consciousness - ANYTHING that concerns you - Post Discharge Activity
--- NOTE | 2019-07-01 14:31 | PDOC ---
Attending Attestation - Resident Resident Name: GoyoGiuseppe - ED Attending Attestation I have performed the following: I have examined & evaluated the patient, The case was reviewed & discussed with the resident, I agree w/resident's findings & plan - HPI HPI: 07/01/19 14:34 83 YOF [place] speaking, HTN, HLD, diverticulitis, hypothyroidism, osteoarthritis, constipation Presenting with daily headache, x since September, but worse this morning, where her head felt "warm" burning and flushed sensation. she placed some ice packs to her head, with some improvement of note, she was found wandering at [facility] pharmacy and confused about 2 weeks ago. no known trauma, sz, no focal neurologic changes. - Physicial Exam PE: 07/01/19 14:30 Agree with the resident's HPI and PE as documented in the electronic medical record. NAD, well appearing, alert, oriented appropriately, EOMI, PERRL, no nystagmus, nl conjunctiva, anicteric; neck supple. lungs clear, RRR, no murmur, abdomen soft nontender. no rebound, guarding. Back nontender. MELENDEZ x4, no focal neuro deficits. No peripheral edema. normal color for ethnicity, WWP. speech clear, no drift, calm and cooperative. 07/01/19 16:09 - Medical Decision Making 07/01/19 14:30 Vital Signs Temp Pulse Resp BP Pulse Ox 98.2 F 89 18 128/89 98 07/01/19 13:17 07/01/19 13:17 07/01/19 13:17 07/01/19 13:17 07/01/19 13:17 VS reviewed wnl. 07/01/19 14:36 DDX headache: migraine, tension, cluster headache, SAH, CVA, head bleed/ICH. dementia, delirium Based on the patient's history and physical there is very low clinical suspicion for significant intracranial pathology. The headache was NOT sudden onset, NOT maximal at onset, there are NO neurologic findings, the patient does NOT have a fever, the patient does NOT have any jaw claudication, the patient does NOT endorse a clotting disorder, patient DENIES any trauma or eye pain and the headache is NOT associated with dizziness or ataxia. Will treatment the patient symptomatically and reassess Kernig and Brudzinski signs are negative, no petechiae, no photophobia, no dysarthria, no facial asymmetry, and no focal deficits. Very low clinical suspicion for meningitis. No evidence of subarachnoid hemorrhage, intracranial bleed, meningitis, encephalitis, temporal arteritis, or intracranial mass. Patient denies new weakness on one side of the body, diplopia, vertigo, slurred speech, headache, or difficulty walking. CT head without acute intra cranial pathology/mass noted. no infectious systems, pt with normal mental status and neuro intact at this time, no complaints, no headache as it had improved prior to presentation. Laboratory results are within normal limits, no anemia, electrolytes and creatinine also normal. Troponin is negative so unlikely underlying cardiac issue or ACS. EKG is sinus rhythm. CT head negative for acute intracranial mass bleed or CVA. Pt to be discharged in stable condition. Patient and family made aware of clinical impression, treatment recommendations and disposition plan, return precautions discussed (including but not limited to new or persistent/worsening symptoms, pain, fevers, or signs of infection, chest pain, respiratory distress, inability to tolerate oral intake, dehydration, syncope, or neurologic changes). Follow up with PMD and/or neuro specialist as recommended, follow up information provided, take medications as instructed for duration of time. continue with supportive care, avoid triggers and precipitants. All questions answered to patient's satisfaction and expressed understanding and comfort with this. At the time of discharge, the patient is alert, clinically improved, tolerating po and verbalizes understanding of instructions, satisfied with the care received and felt comfortable with the plan. Patient does not suffer from an acute life-threatening medical condition at this time and is safe for outpatient follow-up. 07/01/19 16:08 07/01/19 16:09 07/01/19 17:31 Heart Score/ECG Review #1 ECG reviewed & interpreted by me at: 13:55 General ECG Interpretation: Sinus Rhythm, Normal Rate, Normal Intervals Compared to previous ECG there are: No significant change 07/01/19 14:31 EKG normal sinus rhythm at 69 bpm, no interval abnormalities, narrow QRS, ST and T wave segments and morphology normal. Nonspecific T wave abnormality in III only.
[2019-07-01 15:19] LABS: BASO % 0.5 % (0-2.0); EOS % 0.9 % (0-4.5); HEMATOCRIT 39.3 % (32.4-45.2); HEMOGLOBIN 13.3 GM/dL (10.7-15.3); LYMPH % 26.2 % (8-40); MCH 30.7 pg (25.7-33.7); MCHC 33.9 g/dl (32.0-36.0); MEAN CELL VOLUME 90.5 fl (80-96); MEAN PLT VOLUME 9.1 fl (7.5-11.1); MONO % 8.3 % (3.8-10.2); NEUT % 64.1 % (42.8-82.8); PLATELET COUNT 223 K/MM3 (134-434); RBC 4.34 M/mm3 (3.60-5.2); RDW 13.4 % (11.6-15.6); WHITE BLOOD COUNT 7.4 K/mm3 (4.0-10.0)
[2019-07-01 15:58] LABS: BILIRUBIN,TOTAL 0.4 mg/dL (0.2-1); BLOOD UREA NITROGEN 22.8 mg/dL (7-18); CREATININE 1.2 mg/dL (0.55-1.3); TOT PROT 7.4 g/dl (6.4-8.2)
[2019-07-01 17:51] VITALS: BP 138/68; PULSE 86
--- NOTE | 2019-07-02 17:05 | EKG ---
Test Reason : Blood Pressure : / mmHG Vent. Rate : 069 BPM Atrial Rate : 069 BPM P-R Int : 160 ms QRS Dur : 088 ms QT Int : 416 ms P-R-T Axes : 017 -13 031 degrees QTc Int : 445 ms NORMAL SINUS RHYTHM NONSPECIFIC ST ABNORMALITY ABNORMAL ECG WHEN COMPARED WITH ECG OF 25-SEP-2018 10:33, NO SIGNIFICANT CHANGE WAS FOUND Confirmed by STEVEN HAMMER MD ([id number]) on 07/02/2019 5:05:15 PM Referred By: Confirmed By:STEVEN HAMMER MD
== END 2019-07-01 17:51 | disposition home or self-care (01) ==
LOC: JER 13:15
DX: R51 Headache (principal); I10 Essential (primary) hypertension; E78.5 Hyperlipidemia, unspecified; E03.9 Hypothyroidism, unspecified; E11.9 Type 2 diabetes mellitus without complications; M19.90 Unspecified osteoarthritis, unspecified site; Z87.19 Personal history of other diseases of the digestive system; M54.5 Low back pain; G89.29 Other chronic pain
CPT/HCPCS: 36415; 70450-TC; 80053; 82550; 84443; 84484; 85025; 93005; 93010; 99283-25

== ENCOUNTER 2020-12-16 18:41 | Observation (INO) | payer OTHER ==
[2020-12-16] MEDS ORDERED: ACETAMINOPHEN 1000 MG/100 ML VIAL (NON FORMULARY) IVPB ONE (21:54)
[2020-12-16] MEDS ORDERED: SODIUM CHLORIDE 500 ML IV STA (21:54)
[2020-12-16 22:02] LABS: BASO % 0.5 % (0-2.0); EOS % 1.8 % (0-4.5); HEMATOCRIT 40.4 % (32.4-45.2); HEMOGLOBIN 13.7 GM/dL (10.7-15.3); LYMPH % 31.6 % (8-40); MCH 31.3 pg (25.7-33.7); MEAN CELL VOLUME 92.1 fl (80-96); MEAN PLT VOLUME 9.2 fl (7.5-11.1); MONO % 8.6 % (3.8-10.2); NEUT % 57.5 % (42.8-82.8); PLATELET COUNT 203 K/MM3 (134-434); RBC 4.38 M/mm3 (3.60-5.2); RDW 13.8 % (11.6-15.6)
[2020-12-16 22:19] LABS: BLOOD UREA NITROGEN 13.9 mg/dL (7-18); CALCIUM 9.1 mg/dL (8.5-10.1)
[2020-12-16 22:23] LABS: CREATININE 1.2 mg/dL (0.55-1.3)
[2020-12-16 22:24] LABS: BILIRUBIN,TOTAL 0.6 mg/dL (0.2-1); TOT PROT 7.8 g/dl (6.4-8.2)
[2020-12-16 22:26] LABS: EPI CELLS 7 /uL (0-25.1); HYALINE CASTS 0 /uL (0-3.1); PH,URINE 6.5 (5.0-8.0); URINE APPEARANCE CLEAR; URINE BACTERIA 15 /uL (0-1359); URINE BILIRUBIN NEGATIVE (NEGATIVE); URINE COLOR YELLOW; URINE GLUCOSE (UA) NEGATIVE (NEGATIVE); URINE KETONE NEGATIVE (NEGATIVE); URINE LEUK ESTERASE 2+ (NEGATIVE); URINE NITRITE NEGATIVE (NEGATIVE); URINE PROTEIN NEGATIVE (NEGATIVE); URINE RBC 8 /uL (0-23.9); URINE UROBILINOGEN 0.2 mg/dL (0.2-1.0); URINE WBC 39 /uL (0-25.8)
[2020-12-17] MEDS ORDERED: CEFTRIAXONE 1,000 MG in DEXTROSE 5%-WATER - 50 ML IVPB ONE (00:09)
[2020-12-17] MEDS ORDERED: CEFTRIAXONE 1 GM/50 ML BAG ONE (00:17)
[2020-12-17] MEDS ORDERED: LISINOPRIL 5 MG TABLET PO ONE (00:59)
[2020-12-17] MEDS ORDERED: LISINOPRIL 5 MG TABLET ONE (01:12)
[2020-12-17] MEDS ORDERED: LISINOPRIL 10 MG TABLET PO SCH (10:00)
[2020-12-17] MEDS ORDERED: LISINOPRIL 20 MG TABLET PO ONE (11:31)
[2020-12-17] MEDS ORDERED: MORPHINE SULFATE 2 MG/ML VIAL IVPUSH PRN (13:17)
[2020-12-17] MEDS ORDERED: DEXTROSE 5%-WATER - 50 ML IVPB ONE ×2 (13:35→16:08)
[2020-12-17] MEDS ORDERED: PIPERACILLIN/TAZOBACTAM 3.375 GM VIAL IVPB ONE ×2 (13:35→16:07)
[2020-12-17] MEDS: oxyCODONE HCL 5 MG TABLET PO PRN ×2 (13:38→21:32)
[2020-12-17] MEDS: PIPERACILLIN/TAZOB 3.375 GM 3.375 GM in DEXTROSE 5%-WATER - 50 ML IVPB SCH ×2 (13:38→17:45)
[2020-12-17] MEDS: SODIUM CHLORIDE 0.45% 1,000 ML IV SCH (14:11)
[2020-12-17 14:40] VITALS: BMI 26.2
[2020-12-17] MEDS: ATORVASTATIN CA 10 MG TABLET (FP) PO SCH (21:27)
[2020-12-17] MEDS: LISINOPRIL 20 MG TABLET PO SCH (21:27)
[2020-12-18] MEDS ORDERED: DEXTROSE 5%-WATER - 50 ML IVPB ONE ×3 (01:05→17:00)
[2020-12-18] MEDS ORDERED: PIPERACILLIN/TAZOBACTAM 3.375 GM VIAL IVPB ONE ×3 (01:05→17:00)
[2020-12-18] MEDS: PIPERACILLIN/TAZOB 3.375 GM 3.375 GM in DEXTROSE 5%-WATER - 50 ML IVPB SCH ×3 (02:05→17:23)
[2020-12-18] MEDS: SODIUM CHLORIDE 0.45% 1,000 ML IV SCH ×3 (02:05→23:36)
[2020-12-18] MEDS: LEVOTHYROXINE NA 50 MCG TABLET (FP) PO SCH (06:35)
[2020-12-18 07:57] LABS: BASO % 0.4 % (0-2.0); HEMATOCRIT 39.1 % (32.4-45.2); HEMOGLOBIN 13.2 GM/dL (10.7-15.3); LYMPH % 29.1 % (8-40); MCH 31.2 pg (25.7-33.7); MCHC 33.8 g/dl (32.0-36.0); MEAN CELL VOLUME 92.3 fl (80-96); MEAN PLT VOLUME 9.4 fl (7.5-11.1); MONO % 9.5 % (3.8-10.2); PLATELET COUNT 173 K/MM3 (134-434); RBC 4.24 M/mm3 (3.60-5.2); RDW 14.1 % (11.6-15.6); WHITE BLOOD COUNT 6.3 K/mm3 (4.0-10.0)
[2020-12-18 08:35] LABS: BILIRUBIN,TOTAL 0.6 mg/dL (0.2-1); BLOOD UREA NITROGEN 12.6 mg/dL (7-18)
[2020-12-18 08:36] LABS: ALBUMIN 3.7 g/dl (3.4-5.0)
[2020-12-18 08:37] LABS: TOT PROT 6.9 g/dl (6.4-8.2)
[2020-12-18 08:38] LABS: CALCIUM 8.7 mg/dL (8.5-10.1); CREATININE 1.3 mg/dL (0.55-1.3)
[2020-12-18] MEDS: POLYETHYLENE GLYCOL 3350 119 GM BTL PO SCH (10:26)
[2020-12-18] MEDS: LISINOPRIL 20 MG TABLET PO SCH ×2 (10:27→21:56)
[2020-12-18] MEDS: LACTOBACILLUS ACIDOPHILUS 1 TABLET PO SCH (10:27)
[2020-12-18] MEDS: PANTOPRAZOLE 40 MG TABLET PO SCH (13:35)
[2020-12-18] MEDS: ENOXAPARIN NA (PORCINE) 40 MG/0.4 ML DISP.SYRIN SQ SCH (13:35)
[2020-12-18] MEDS: ATORVASTATIN CA 10 MG TABLET (FP) PO SCH (21:56)
[2020-12-19] MEDS ORDERED: DEXTROSE 5%-WATER - 50 ML IVPB ONE ×3 (01:15→17:15)
[2020-12-19] MEDS ORDERED: PIPERACILLIN/TAZOBACTAM 3.375 GM VIAL IVPB ONE ×3 (01:15→17:14)
[2020-12-19] MEDS: PIPERACILLIN/TAZOB 3.375 GM 3.375 GM in DEXTROSE 5%-WATER - 50 ML IVPB SCH ×3 (01:53→17:21)
[2020-12-19] MEDS: ACETAMINOPHEN 325 MG TABLET (FP) PO PRN ×2 (05:55→21:04)
[2020-12-19] MEDS: LEVOTHYROXINE NA 50 MCG TABLET (FP) PO SCH (06:00)
[2020-12-19] MEDS: LACTOBACILLUS ACIDOPHILUS 1 TABLET PO SCH (11:02)
[2020-12-19] MEDS: PANTOPRAZOLE 40 MG TABLET PO SCH (11:02)
[2020-12-19] MEDS: LISINOPRIL 20 MG TABLET PO SCH ×2 (11:02→21:04)
[2020-12-19] MEDS: POLYETHYLENE GLYCOL 3350 119 GM BTL PO SCH ×2 (11:03→21:05)
[2020-12-19] MEDS: ENOXAPARIN NA (PORCINE) 40 MG/0.4 ML DISP.SYRIN SQ SCH (11:03)
[2020-12-19] MEDS ORDERED: SENNOSIDES 8.6MG TABLET (FP) PO PRN (12:03)
[2020-12-19] MEDS ORDERED: INSULIN (NOVOLOG) ASPART 100 UNITS/ML 10ML VIAL ONE (12:34)
[2020-12-19] MEDS: SODIUM CHLORIDE 0.45% 1,000 ML IV SCH (14:26)
[2020-12-19] MEDS: ATORVASTATIN CA 10 MG TABLET (FP) PO SCH (21:04)
[2020-12-20] MEDS ORDERED: PIPERACILLIN/TAZOBACTAM 3.375 GM VIAL IVPB ONE ×2 (01:18→09:47)
[2020-12-20] MEDS ORDERED: DEXTROSE 5%-WATER - 50 ML IVPB ONE ×2 (01:18→09:47)
[2020-12-20] MEDS: PIPERACILLIN/TAZOB 3.375 GM 3.375 GM in DEXTROSE 5%-WATER - 50 ML IVPB SCH ×2 (01:21→10:09)
[2020-12-20] MEDS: oxyCODONE HCL 5 MG TABLET PO PRN (01:25)
[2020-12-20 06:27] LABS: HEMATOCRIT 37.2 % (32.4-45.2); MCH 31.6 pg (25.7-33.7); MCHC 34.8 g/dl (32.0-36.0); MEAN CELL VOLUME 90.7 fl (80-96); MEAN PLT VOLUME 9.1 fl (7.5-11.1); PLATELET COUNT 166 K/MM3 (134-434); RDW 13.6 % (11.6-15.6)
[2020-12-20 06:45] LABS: CALCIUM 8.5 mg/dL (8.5-10.1)
[2020-12-20 06:46] LABS: ALBUMIN 3.5 g/dl (3.4-5.0)
[2020-12-20 06:49] LABS: CREATININE 1.3 mg/dL (0.55-1.3)
[2020-12-20 06:51] LABS: BILIRUBIN,TOTAL 0.5 mg/dL (0.2-1); TOT PROT 6.6 g/dl (6.4-8.2)
[2020-12-20] MEDS: LEVOTHYROXINE NA 50 MCG TABLET (FP) PO SCH (06:52)
[2020-12-20] MEDS: SODIUM CHLORIDE 0.45% 1,000 ML IV SCH (08:04)
[2020-12-20] MEDS: PANTOPRAZOLE 40 MG TABLET PO SCH (10:09)
[2020-12-20] MEDS: LISINOPRIL 20 MG TABLET PO SCH (10:09)
[2020-12-20] MEDS: LACTOBACILLUS ACIDOPHILUS 1 TABLET PO SCH (10:09)
[2020-12-20] MEDS: ENOXAPARIN NA (PORCINE) 40 MG/0.4 ML DISP.SYRIN SQ SCH (10:10)
[2020-12-20] MEDS: POLYETHYLENE GLYCOL 3350 119 GM BTL PO SCH (10:11)
[2020-12-20 13:57] VITALS: BP 149/76; PULSE 63; TEMP 98.3
== END 2020-12-20 18:42 | disposition home or self-care (01) ==
LOC: JER 18:41 → INTOOBSV 12-17 00:45 → JERBED 12-17 00:45 → J7W 12-17 12:16
PROVIDERS: ADMIT Internal Medicine; ATTEND Internal Medicine
PROC: 3E023GC Introduction of Other Therapeutic Substance into Muscle, Percutaneous Approach (ICD-10-PCS; principal; 2020-12-17)
PROC: 3E03329 Introduction of Other Anti-infective into Peripheral Vein, Percutaneous Approach (ICD-10-PCS; 2020-12-17)
PROC: 3E0337Z Introduction of Electrolytic and Water Balance Substance into Peripheral Vein, Percutaneous Approach (ICD-10-PCS; 2020-12-17)
DX: I10 Essential (primary) hypertension (principal); N12 Tubulo-interstitial nephritis, not specified as acute or chronic; K57.90 Diverticulosis of intestine, part unspecified, without perforation or abscess without bleeding; M54.5 Low back pain; G89.29 Other chronic pain; R01.1 Cardiac murmur, unspecified; E78.5 Hyperlipidemia, unspecified
CPT/HCPCS: 36415; 74177-TC; 80053; 81003; 85025; 85027; 87040; 87086; 93005; 93010; 96361; 96365; 96372; 96374; 99285-25; C9803; G0378; J0131; U0003; U0005

== ENCOUNTER 2021-04-26 11:17 | Emergency (ER) | payer OTHER ==
[2021-04-26 11:45] VITALS: BMI 26.3
[2021-04-26] MEDS ORDERED: LIDOCAINE 5% TOPICAL PATCH TP ONE (13:55)
[2021-04-26] MEDS ORDERED: ACETAMINOPHEN 1000 MG/100 ML VIAL (NON FORMULARY) IVPB ONE (13:55)
[2021-04-26] MEDS ORDERED: LIDOCAINE 5% TOPICAL PATCH ONE (14:04)
[2021-04-26] MEDS ORDERED: ACETAMINOPHEN INJECTION 100 ML IVPB ONE (14:04)
[2021-04-26 14:45] LABS: BASO % 1.2 % (0-2.0); EOS % 1.2 % (0-4.5); HEMATOCRIT 40.4 % (32.4-45.2); HEMOGLOBIN 14.1 GM/dL (10.7-15.3); LYMPH % 22.7 % (8-40); MCH 31.8 pg (25.7-33.7); MEAN PLT VOLUME 9.1 fl (7.5-11.1); MONO % 7.2 % (3.8-10.2); NEUT % 67.7 % (42.8-82.8); PLATELET COUNT 211 10^3/uL (134-434); RBC 4.43 M/mm3 (3.60-5.2); RDW 13.9 % (11.6-15.6)
[2021-04-26 15:14] LABS: BLOOD UREA NITROGEN 14.7 mg/dL (7-18); CALCIUM 9.5 mg/dL (8.5-10.1)
[2021-04-26 15:15] LABS: ALBUMIN 4.2 g/dl (3.4-5.0)
[2021-04-26 15:18] LABS: CREATININE 1.2 mg/dL (0.55-1.3)
[2021-04-26 15:19] LABS: BILIRUBIN,TOTAL 0.4 mg/dL (0.2-1); TOT PROT 8.1 g/dl (6.4-8.2)
[2021-04-26 16:02] VITALS: BP 151/77; PULSE 62; TEMP 98.7
[2021-04-26] MEDS ORDERED: LIDOCAINE PATCH REMOVAL MC SCH (22:00)
== END 2021-04-26 16:39 | disposition home or self-care (01) ==
LOC: JER 11:17
PROC: 3E0333Z Introduction of Anti-inflammatory into Peripheral Vein, Percutaneous Approach (ICD-10-PCS; principal; 2021-04-26)
DX: M47.26 Other spondylosis with radiculopathy, lumbar region (principal)
CPT/HCPCS: 36415; 80053; 85025; 99284-25; J0131

== ENCOUNTER 2022-01-23 18:10 | Emergency (ER) | payer OTHER ==
[2022-01-23 18:25] VITALS: BP 147/66; PULSE 81; TEMP 98.4; BMI 26.5
[2022-01-23] MEDS ORDERED: SODIUM CHLORIDE 0.9% 500 ML INFUS.BAG IV ONE (18:57)
[2022-01-23] MEDS ORDERED: ACETAMINOPHEN 1000 MG/100 ML BAG IVPB ONE (18:57)
[2022-01-23 19:54] LABS: EPI CELLS 5 /uL (0-25.1); HYALINE CASTS 1 /uL (0-3.1); PH,URINE 5.5 (5.0-8.0); URINE APPEARANCE CLOUDY; URINE BACTERIA 42 /uL (0-1359); URINE BILIRUBIN NEGATIVE (NEGATIVE); URINE COLOR YELLOW; URINE GLUCOSE (UA) NEGATIVE (NEGATIVE); URINE KETONE NEGATIVE (NEGATIVE); URINE LEUK ESTERASE 3+ (NEGATIVE); URINE NITRITE NEGATIVE (NEGATIVE); URINE PROTEIN TRACE (NEGATIVE); URINE RBC 24 /uL (0-23.9); URINE UROBILINOGEN 0.2 mg/dL (0.2-1.0); URINE WBC 2239 /uL (0-25.8)
[2022-01-23] MEDS ORDERED: ACETAMINOPHEN INJECTION 100 ML IVPB ONE (20:04)
[2022-01-23] MEDS ORDERED: CEFTRIAXONE 1 GM in DEXTROSE 5%-WATER - 100 ML IVPB ONE (20:19)
[2022-01-23] MEDS ORDERED: CEFTRIAXONE 1 GM/50 ML BAG ONE (20:36)
[2022-01-23 20:40] LABS: HEMATOCRIT 36.6 % (32.4-45.2); HEMOGLOBIN 12.3 GM/dL (10.7-15.3); MCH 30.6 pg (25.7-33.7); MCHC 33.7 g/dl (32.0-36.0); MEAN CELL VOLUME 90.7 fl (80-96); MEAN PLT VOLUME 10.4 fl (7.5-11.1); PLATELET COUNT 162 10^3/uL (134-434); RBC 4.03 M/mm3 (3.60-5.2); RDW 14.1 % (11.6-15.6); WHITE BLOOD COUNT 10.3 K/mm3 (4.0-10.0)
[2022-01-23 20:45] LABS: INR 1.05 (0.83-1.09); PROTHROMBIN TIME (PATIENT) 12.1 SEC (9.7-13.0)
[2022-01-23 20:59] LABS: CALCIUM 9.6 mg/dL (8.5-10.1)
[2022-01-23 21:00] LABS: ALBUMIN 3.8 g/dl (3.4-5.0); MAGNESIUM 2.3 mg/dL (1.8-2.4)
[2022-01-23 21:03] LABS: CREATININE 1.2 mg/dL (0.55-1.3)
[2022-01-23 21:04] LABS: BILIRUBIN,TOTAL 0.6 mg/dL (0.2-1); TOT PROT 7.5 g/dl (6.4-8.2)
[2022-01-23 21:29] LABS: ANISOCYTOSIS 0; MACROCYTOSIS 0; PLATELET ESTIMATE DECREASED
== END 2022-01-23 22:52 | disposition home or self-care (01) ==
LOC: JER 18:10
PROC: 3E033GC Introduction of Other Therapeutic Substance into Peripheral Vein, Percutaneous Approach (ICD-10-PCS; principal; 2022-01-23)
DX: R30.0 Dysuria (principal)
CPT/HCPCS: 36415; 74176-TC; 80053; 81003; 83690; 83735; 85025; 85610; 85730; 87086; 87186; 93005; 93010; 99285-25

== ENCOUNTER 2022-12-07 11:10 | Emergency (ER) | payer OTHER ==
[2022-12-07 11:38] VITALS: BP 172/84; PULSE 81; RESP 19; TEMP 98.5; BMI 27.9
[2022-12-07] MEDS ORDERED: ACETAMINOPHEN 500 MG TABLET (FP) PO ONE (12:38)
[2022-12-07] MEDS ORDERED: IBUPROFEN 400 MG TABLET (FP) PO ONE ×2 (12:40→12:46)
[2022-12-07] MEDS ORDERED: LIDOCAINE 5% TOPICAL PATCH TP ONE (12:40)
[2022-12-07] MEDS ORDERED: LIDOCAINE 5% TOPICAL PATCH ONE (12:46)
[2022-12-07] MEDS ORDERED: LIDOCAINE PATCH REMOVAL MC ONE (22:00)
== END 2022-12-07 13:24 | disposition home or self-care (01) ==
LOC: JERFT 11:10
DX: M25.511 Pain in right shoulder (principal)
CPT/HCPCS: 99283-25

== ENCOUNTER 2022-12-23 04:20 | Day surgery (SDC) | payer OTHER ==
[2022-12-21 17:54] VITALS: BMI 27.3
[~2022-12-23 04:20] MED LIST: ACETAMINOPHEN 325 MG TABLET (FP) PO PRN; CYCLOPENTOLATE HCL 1% OPHTH SOLN 2 ML BOTTLE OP SCH; KETOROLAC TROMETHAMINE 0.5% EYE DROP 1 DROP DROPS OP SCH; OFLOXACIN 0.3% OPHTHALMIC SOLUTION 5 ML BOTTLE OP SCH; PHENYLEPHRINE 2.5% OPHTH SOLN 15 ML BOTTLE OP SCH; TROPICAMIDE 1% OPHTH SOLN 15 ML BOTTLE OP SCH
[2022-12-23] MEDS ORDERED: BUPIVACAINE HCL/PF 0.75% 10 ML VIAL ONE (07:15)
[2022-12-23] MEDS ORDERED: LIDOCAINE HCL/PF 2% SDV 5ML VIAL ONE (07:15)
[2022-12-23] MEDS ORDERED: LIDOCAINE HCL/PF 1% SDV 5ML VIAL ONE (07:16)
[2022-12-23] MEDS ORDERED: POVIDONE-IODINE 5% OPHTHALMIC PREP 30 ML SOLUTION ONE (07:16)
[2022-12-23] MEDS ORDERED: PHENYLEPHRINE 2.5% OPTHALMIC DROP 2ML BOTTLE ONE (07:21)
[2022-12-23] MEDS ORDERED: KETOROLAC TROMETHAMINE 0.5% EYE DROP 1 DROP DROPS ONE (07:21)
[2022-12-23] MEDS ORDERED: CYCLOPENTOLATE HCL 1% OPHTH SOLN 2 ML BOTTLE ONE (07:22)
[2022-12-23] MEDS ORDERED: TROPICAMIDE 1% 3 ML EYE DROPS ONE (07:22)
[2022-12-23] MEDS ORDERED: OFLOXACIN 0.3% OPHTHALMIC SOLUTION 5 ML BOTTLE ONE (07:22)
[2022-12-23] MEDS ORDERED: CYCLOPENTOLATE HCL 1% OPHTH SOLN 2 ML BOTTLE OD ONE ×3 (07:30→07:50)
[2022-12-23] MEDS ORDERED: OFLOXACIN 0.3% OPHTHALMIC SOLUTION 5 ML BOTTLE OD ONE ×3 (07:30→07:50)
[2022-12-23] MEDS ORDERED: KETOROLAC TROMETHAMINE 0.5% EYE DROP 1 DROP DROPS OD ONE ×3 (07:30→07:50)
[2022-12-23] MEDS ORDERED: TROPICAMIDE 0.5% OPHTHALMIC SOLN 15 ML BOTTLE OD ONE ×2 (07:30→07:40)
[2022-12-23] MEDS ORDERED: PHENYLEPHRINE 2.5% OPHTH SOLN 15 ML BOTTLE OD ONE ×3 (07:30→07:50)
[2022-12-23] MEDS ORDERED: TROPICAMIDE 1% OPHTH SOLN 15 ML BOTTLE OD ONE (07:50)
[2022-12-23] MEDS ORDERED: PROPOFOL 20 ML ONE (08:42)
[2022-12-23] MEDS ORDERED: MIDAZOLAM HCL 2 MG/2 ML SINGLE DOSE VIAL ONE (08:43)
[2022-12-23] MEDS ORDERED: CARBACHOL 0.01% INTRA-OCULAR 1.5 ML VIAL ONE (08:51)
[2022-12-23] MEDS ORDERED: LIDOCAINE HCL/PF 2% SDV 5ML VIAL INF ONE (09:05)
[2022-12-23] MEDS ORDERED: BUPIVACAINE HCL/PF 0.75% 10 ML VIAL RB ONE (09:05)
[2022-12-23] MEDS ORDERED: POVIDONE-IODINE 5% OPHTHALMIC PREP 30 ML SOLUTION OD ONE (09:06)
[2022-12-23] MEDS ORDERED: BSS (NA/CA/MG/K) BALANCED SALT SOLUTION OPHTH SOLN 15 ML BOTTLE IO ONE (09:11)
[2022-12-23] MEDS ORDERED: LIDOCAINE HCL 1% PRESERVATIVE FREE - 30ML VIAL IO ONE (09:12)
[2022-12-23] MEDS ORDERED: CHONDROITIN SU A/HYALUR SOD 1 KIT IO ONE (09:13)
[2022-12-23] MEDS ORDERED: EPINEPHrine/PF 1 MG/1 ML (1:1,000) AMPULE SQ ONE (09:17)
[2022-12-23] MEDS ORDERED: LISINOPRIL 20 MG TABLET PO ONE (09:59)
[2022-12-23 10:11] VITALS: TEMP 98
[2022-12-23 11:23] VITALS: BP 186/98; PULSE 60; RESP 18
== END 2022-12-23 10:35 | disposition home or self-care (01) ==
LOC: JASU-SURG 04:20
PROVIDERS: ATTEND Ophthalmology
PROC: 08RJ3JZ Replacement of Right Lens with Synthetic Substitute, Percutaneous Approach (ICD-10-PCS; principal; 2022-12-23 09:00)
DX: H26.9 Unspecified cataract (principal)
CPT/HCPCS: V2632

== ENCOUNTER 2023-01-06 04:16 | Day surgery (SDC) | payer OTHER ==
[2023-01-04 10:05] VITALS: BMI 27.3
[~2023-01-06 04:16] MED LIST changes: -CYCLOPENTOLATE HCL 1% OPHTH SOLN 2 ML BOTTLE OP SCH; -KETOROLAC TROMETHAMINE 0.5% EYE DROP 1 DROP DROPS OP SCH; -OFLOXACIN 0.3% OPHTHALMIC SOLUTION 5 ML BOTTLE OP SCH; -PHENYLEPHRINE 2.5% OPHTH SOLN 15 ML BOTTLE OP SCH; -TROPICAMIDE 1% OPHTH SOLN 15 ML BOTTLE OP SCH
[2023-01-06] MEDS ORDERED: CYCLOPENTOLATE HCL 1% OPHTH SOLN 2 ML BOTTLE ONE (07:20)
[2023-01-06] MEDS ORDERED: KETOROLAC TROMETHAMINE 0.5% EYE DROP 1 DROP DROPS ONE (07:21)
[2023-01-06] MEDS ORDERED: PHENYLEPHRINE 2.5% OPTHALMIC DROP 2ML BOTTLE ONE (07:22)
[2023-01-06] MEDS ORDERED: EPINEPHrine/PF 1 MG/1 ML (1:1,000) AMPULE ONE (07:22)
[2023-01-06] MEDS ORDERED: TROPICAMIDE 1% 3 ML EYE DROPS ONE (07:22)
[2023-01-06] MEDS ORDERED: BUPIVACAINE HCL/PF 0.75% 10 ML VIAL ONE (07:23)
[2023-01-06] MEDS ORDERED: POVIDONE-IODINE 5% OPHTHALMIC PREP 30 ML SOLUTION ONE (07:23)
[2023-01-06] MEDS ORDERED: OFLOXACIN 0.3% OPHTHALMIC SOLUTION 5 ML BOTTLE ONE (07:23)
[2023-01-06 07:56] VITALS: RESP 18
[2023-01-06] MEDS: CYCLOPENTOLATE HCL 1% OPHTH SOLN 2 ML BOTTLE OP SCH ×3 (07:58→08:11)
[2023-01-06] MEDS: KETOROLAC TROMETHAMINE 0.5% EYE DROP 1 DROP DROPS OP SCH ×3 (07:58→08:12)
[2023-01-06] MEDS: PHENYLEPHRINE 2.5% OPHTH SOLN 15 ML BOTTLE OP SCH ×3 (07:59→08:12)
[2023-01-06] MEDS: TROPICAMIDE 1% OPHTH SOLN 15 ML BOTTLE OP SCH ×3 (07:59→08:12)
[2023-01-06] MEDS: OFLOXACIN 0.3% OPHTHALMIC SOLUTION 5 ML BOTTLE OP SCH ×3 (08:00→08:13)
[2023-01-06] MEDS ORDERED: CHONDROITIN SU A/HYALUR SOD 1 KIT IO ONE (09:25)
[2023-01-06] MEDS ORDERED: LIDOCAINE HCL/PF 2% SDV 5ML VIAL INF ONE (09:25)
[2023-01-06] MEDS ORDERED: BUPIVACAINE HCL/PF 0.75% 10 ML VIAL RB ONE (09:25)
[2023-01-06] MEDS ORDERED: POVIDONE-IODINE 5% OPHTHALMIC PREP 30 ML SOLUTION OS ONE (09:25)
[2023-01-06] MEDS ORDERED: BSS (NA/CA/MG/K) BALANCED SALT SOLUTION OPHTH SOLN 15 ML BOTTLE OS ONE (09:25)
[2023-01-06] MEDS ORDERED: EPINEPHrine/PF 1 MG/1 ML (1:1,000) AMPULE IM ONE (09:25)
[2023-01-06] MEDS ORDERED: LIDOCAINE HCL 1% PRESERVATIVE FREE - 30ML VIAL IO ONE (09:25)
[2023-01-06] MEDS ORDERED: TETRACAINE 0.5% OPHTH SOLN 2 ML BOTTLE OS ONE (09:25)
[2023-01-06 10:20] VITALS: TEMP 97.3
[2023-01-06 12:08] VITALS: BP 150/70; PULSE 60
== END 2023-01-06 10:45 | disposition home or self-care (01) ==
LOC: JASU-SURG 04:16
PROVIDERS: ATTEND Ophthalmology
PROC: 08RK3JZ Replacement of Left Lens with Synthetic Substitute, Percutaneous Approach (ICD-10-PCS; principal; 2023-01-06 09:00)
DX: H26.9 Unspecified cataract (principal)
CPT/HCPCS: V2632